=== PATIENT | male | born 1955 | race Caucasian/White ===

== ENCOUNTER 2018-01-16 07:04 | Day surgery (SDC) | payer OTHER ==
[~2018-01-16] VITALS: Ht 182.9 cm; Wt 126.1 kg
[~2018-01-16 07:04] MED LIST: ALLOPURINOL100 MG PO; ASPIRIN81 MG PO; CLOPIDOGREL75 MG PO; COZAAR100 MG PO; FISH OIL 1,0001 EACH PO; FLAX OIL1000 MG PO; GLUCOSAMINE &1 EACH PO; LIPITOR80 MG PO; METOPROLOL TAR100 MG PO; NITRO DUR TD; OSTEO BI-FLEX1 EAC4 PO; ZESTRIL40 MG PO
--- NOTE | 2018-01-16 08:54 | NUR ---
01/16/18 0854 Lola Villagomez 0836 PATIENT ARRIVES TO PACU SLEEPING, AWAKENS WITH VERBAL STIMULI. RESP EVEN AND UNLABORED, ON NC AT 3 LITERS, TURNED OFF ON ARRIVAL TO PACU, ROOM AIR SATS 94-95%.
--- NOTE | 2018-01-17 09:07 | OR ---
[facility] [address], [place] [address] Signed DATE OF OPERATION: 01/16/2018 SURGEON: Savannah Deleon MD PREOPERATIVE DIAGNOSES: 1. Diverticulosis. 2. Internal hemorrhoids. 3. Screening. POSTOPERATIVE DIAGNOSES: 1. Minimal sigmoid diverticulosis. 2. 5 mm polyp at 35 cm. 3. Minimal internal hemorrhoids. PROCEDURE PERFORMED: Colonoscopy with hot biopsy. ESTIMATED BLOOD LOSS: None. INDICATIONS: The patient is a 62-year-old gentleman, who came to us for a followup screening colonoscopy. He knows he has internal hemorrhoids with some diverticulosis. He has been on aspirin and Plavix for his cardiac stents. It has now been one year, so he is off the Plavix and he stopped the aspirin as well for the procedure. In the office, I gave him a pamphlet on endoscopy and we reviewed that together along with the risks including, but not limited to gas bloating, crampy abdominal pain, bleeding, perforation, requiring surgery, and missed diagnosis. He also understands the need for IV conscious sedation. He had expressed understanding and wished to proceed. DESCRIPTION OF PROCEDURE: Corey was taken into our endoscopy suite and placed in the left lateral decubitus position. He was given 5 mg of Versed and 100 mcg of fentanyl to cover the case. A digital rectal exam was performed and this was unremarkable. He does have a little induration to the prostate. The adult colonoscope was introduced and advanced all around into the cecum without difficulty. His prep was good. The scope was then slowly withdrawn. We saw few diverticula in the sigmoid colon. They were minimal to moderate in size, few in number, and scattered about. At 35 cm, we saw a small 5 mm polyp. It was easily removed with hot biopsy forceps. The rectum itself was unremarkable. Upon retroflexion of scope, he does have just a little bit internal hemorrhoid tissue as Electronically Signed By: SAVANNAH DELEON MD 01/17/18 0907 PATIENT NAME: COREY HUDDLESTON OPERATIVE REPORT DATE OF : 51 REPORT #: [id number] PHYSICIAN: SAVANNAH DELEON MD PCP: YENNI HATHAWAY MD REPORT IS CONFIDENTIAL AND NOT TO BE RELEASED WITHOUT AUTHORIZATION [facility] [address] [place] [id number] Signed well. After this, the gas was suctioned out and the colonoscope removed. The patient tolerated the procedure quite well. RECOMMENDATIONS: I will see the patient back in my office in 7 to 14 days to review his results. Savannah Deleon MD ALB/MODL /[id number] cc: MD Savannah Shanks MD Copies: YENNI HATHAWAY MD, ANDREW L MD ~ Electronically Signed By: SAVANNAH DELEON MD 01/17/18 0907 PATIENT NAME: COREY HUDDLESTON OPERATIVE REPORT DATE OF : 51 REPORT #: [id number] PHYSICIAN: SAVANNAH DELEON MD PCP: YENNI HATHAWAY MD REPORT IS CONFIDENTIAL AND NOT TO BE RELEASED WITHOUT AUTHORIZATION
== END 2018-01-16 09:15 | disposition home or self-care (01) ==
LOC: OPS 07:04 → DS 07:04 → OPS 08:15 → DS 08:15 → OPS 09:15
PROVIDERS: Colon & Rectal Surgery
PROC: 0DBE8ZZ Excision of Large Intestine, Via Natural or Artificial Opening Endoscopic (ICD-10-PCS; principal; 2018-01-16 08:15)
DX: Z12.11 Encounter for screening for malignant neoplasm of colon (principal); K63.5 Polyp of colon; K57.30 Diverticulosis of large intestine without perforation or abscess without bleeding; K64.8 Other hemorrhoids; Z79.82 Long term (current) use of aspirin; Z79.899 Other long term (current) drug therapy; Z79.02 Long term (current) use of antithrombotics/antiplatelets
CPT/HCPCS: 99153; G0500; J2250; J3010; J7120

== ENCOUNTER 2023-03-13 08:53 | Day surgery (SDC) | payer MEDICARE ==
[2023-02-28 12:54] VITALS: BP 153/79
[~2023-03-13] VITALS: Ht 182.9 cm; Wt 129.0 kg
--- NOTE | ~2023-03-13 | OR ---
[facility] [address] [place], [place] [address] Draft DATE OF OPERATION: 03/13/2023 SURGEON: Ronda Garcia MD PREOPERATIVE DIAGNOSIS: Severe DJD, right knee. POSTOPERATIVE DIAGNOSIS: Severe DJD, right knee. PROCEDURE PERFORMED: Right total knee arthroplasty with Keith. SOFTWARE ASSET MANAGEMENT ANALYST: Kia Ibarra PA-C. Kia was present and critical for all portions of the procedure. ANESTHESIA: Spinal. BLOOD LOSS: 163 mL. TOURNIQUET TIME: Zero. IMPLANTS: Shaunna Triathlon size 6, 9 mm polyethylene and 38 mm patella. BRIEF HISTORY: Corey is a 67-year-old gentleman with significant osteoarthritis. Nonoperative treatment failed to control his symptoms and he wished to proceed with total knee arthroplasty. Risks and benefits were discussed with him at length. He understood and wished to proceed. DESCRIPTION OF PROCEDURE: Once consent was obtained, he was taken to the operating room. After adequate anesthesia, he was placed on the operating room table on a hip bump. The leg was prepped and draped in a standard sterile fashion. The knee was approached through a standard anterior midline incision. This was carried through the skin and subcutaneous PATIENT NAME: COREY HUDDLESTON OPERATIVE REPORT DATE OF : 51 REPORT #: [id number] PHYSICIAN: RONDA GARCIA MD PCP: YENNI HATHAWYA MD REPORT IS CONFIDENTIAL AND NOT TO BE RELEASED WITHOUT AUTHORIZATION [facility] [address] [place], [place] [address] Draft tissue. A midvastus arthrotomy was performed and the infrapatellar fat pad was excised. The MCL was elevated subperiosteally around to the posteromedial corner. The patella was quite large and we went ahead and made the patellar cut initially to improve the exposure. The protection plate was then placed on the patella. Once this was completed, the osteophytes were removed off the lateral side to improve mobilization of the patella. Computer arrays were then placed in the medial femoral condyle and tibia and the leg was registered with the computer. The fine anatomic points of the knee were registered with the computer. The varus and valgus ligamentous testing was then undertaken. He was quite tight medially, so some varus changes were made to both components. This equalized the ligamentous tension. The robot was then brought in and 4 straight cuts and 2 angle cuts were made with care taken to protect the patellar tendon and MCL. The bony remnants were removed as were any remaining osteophytes. The posterior osteophytes were removed off the femur and no posterior release was performed. The trials were then positioned. The knee was taken from 0 to 135 degrees with good flexion and extension. There was good stability throughout. The patella was finished using the 38 mm drill guide. The distal femur was drilled and the proximal tibia was finished using the keel punch and drill guide. The tibia was impacted into position first followed by the polyethylene. The femur was then impacted until it was well seated. The knee was extended and loaded. The patella was clamped into position and the clamp was removed. The knee was taken through range of motion. The patella was noted to track quite nicely. The periarticular soft tissues were injected with 100 mL of ropivacaine and Toradol mixture. The On-Q pain pump was percutaneously placed into the adductor canal from the suprapatellar pouch. The knee was then irrigated with one bottle of Surgiphor followed by normal saline. The arthrotomy was then closed using a combination of #2 FiberWire and #2 Stratafix, subcutaneous tissue with 0 Stratafix and the skin with 3-0 Stratafix. The wound was sealed with LiquiBand and Steri-Strips. The wound was dressed with Acticoat-7 dressing, ABDs and Shayan wrap. He tolerated the procedure well. All sponge, needle, and instrument counts were correct. Ronda Garcia MD BA/MODL /[id number] Copies: PATIENT NAME: COREY HUDDLESTON OPERATIVE REPORT DATE OF : 51 REPORT #: [id number] PHYSICIAN: RONDA GARCIA MD PCP: YENNI HATHAWAY MD REPORT IS CONFIDENTIAL AND NOT TO BE RELEASED WITHOUT AUTHORIZATION [facility] [address] [facility] [place] [address] Draft ~ PATIENT NAME: COREY HUDDLESTON OPERATIVE REPORT DATE OF : 51 REPORT #: [id number] PHYSICIAN: RONDA GARCIA MD PCP: YENNI HATHAWAY MD REPORT IS CONFIDENTIAL AND NOT TO BE RELEASED WITHOUT AUTHORIZATION
[~2023-03-13 08:53] MED LIST changes: +MEN PO; +[UNRECOGNIZED DRUG - OTHER] PO
[2023-03-13 09:14] VITALS: BP 140/71
[2023-03-13] MEDS ORDERED: AMLODIPINE BESY10 MG PO (09:22)
[2023-03-13] MEDS ORDERED: NAPROXEN250 MG PO (09:23)
[2023-03-13] MEDS ORDERED: DICLOFENAC SODI75 MG PO (12:39)
[2023-03-13] MEDS ORDERED: XARELTO10 MG PO (12:39)
[2023-03-13] MEDS ORDERED: GABAPENTIN300 MG PO (12:40)
[2023-03-13] MEDS ORDERED: SENNA LAX8.6 MG PO (12:40)
[2023-03-13] MEDS ORDERED: OXYCODONE HCL5 MG PO (12:40)
[2023-03-13 13:30] VITALS: BP 129/59
--- NOTE | 2023-03-13 13:35 | NUR ---
PT ARRIVES TO DAY SURGERY UNIT FROM PACU VIA STRETCHER. PT IS SITTING UP IN BED SIPPING ON ICE WATER AT THIS TIME. PT REPORTS NO PAIN OR NAUSEA AT THIS TIME. REPORT RECEIVED FROM JOAN MACDONALD, NO FAMILY PRESENT AT BEDSIDE. DRESSING IS C/D/I, NO SIGNS OF BLEEDING AT THIS TIME. CRYO CUFF, YOLI HOSE, HEEL PROTECTORS, FOOT PUMPS, AND ONQ PUMP @ [address]. SPINAL HAS RESOLVED TO KNEE LEVEL AT THIS TIME, PT REPORTS NO N/T IN EXTREMITIES. CRACKERS, JELLO, APPLESAUCE PROVIDED, PT TOLERATING CRACKERS W/OUT DIFFICULTY SWALLOWING. CALL LIGHT WITHIN REACH, NO FURTHER NEEDS AT THIS TIME. CALLED AND UPDATED.
--- NOTE | 2023-03-13 14:06 | NUR ---
03/13/23 1406 Liliya Kramer 1251- PT ARRIVES TO PACU, NON REACTIVE TO STIMULUS, SEMI ARCINIEGA POSITION. OPA IN PLACE, PT MAINTAINING AIRWAY WITH JUST OPA. O2 AT 6L PER MASK. LR INFUSING TO RH IV. BREATHING EVEN AND NON LABORED. ALL MONITORS IN PLACE. PULSES INTACT TO RIGHT LEG. ON- Q PUMP AT 4 MG/HR. 1300- PT REACTIVE TO STIMULUS, OPA REMOVED, O2 REMAINS IN PLACE AT THIS TIME. CRYOCUFF PLACED TO RIGHT KNEE. 1310- PT RUBBING AT FACE AND O2 MASK, MOVED TO ROOM AIR. WILL CONTINUE TO MONITOR. 1315- PT STATES "THIS HAS BEEN PAIN FREE". NO OTHER COMPLAINTS. 1320- PT PROVIDED ICE WATER TOLERATING WELL. PT IS ABLE TO ROTATE AND MOVE RIGHT LEG SIDE TO SIDE, LEFT LEG SMALL MOVEMENTS. PT CONTINUES TO DENY PAIN, LEGS BOTH STILL FEEL NUMB. 1335- PT BACK TO DAY SURGERY. REPORT TO HERIBERTO MACDONALD AT BEDSIDE. LR INFUSING TO RH IV, ON-Q PUMP IN PLACE AT 4 MG/HR, DRESSING CDI, CRYOCUFF IN PLACE. PT IS ALERT AND ANSWERING QUESTIONS APPROPRIATELY, SLIGHTLY DROWSY. MOVING ALL 4 EXTREMITIES ALTHOUGH LOWER EXTREMITIES LIMITED. NO SIGNS OF DISTRESS. CARE OF PT TURNED OVER AT THIS TIME.
--- NOTE | 2023-03-13 14:20 | NUR ---
IN PT ROOM FOR ASSESSMENT AND VS. PT REPORTS NO PAIN OR NAUSEA AT THIS TIME. PT IS A&O X4, SITTING UP IN BED W/ IN ROOM. NO ACUTE CHANGES FROM PREVIOUS SURGICAL SITE ASSESSMENT. SPINAL HAS RESOLVED TO ANKLE LEVEL AND PT IS ABLE TO MOVE LEGS FREELY WITHOUT DIFFICULTY. LUNCH ORDERED FOR PT AT THIS TIME, CALL LIGHT WITHIN REACH, NO FURTHER NEEDS AT THIS TIME.
[2023-03-13 14:25] VITALS: BP 140/73
--- NOTE | 2023-03-13 14:50 | NUR ---
PT OFF OF UNIT VIA WC AND STANDBY ASSIST BY THIS RN TO PASSENGER SIDE OF 'S VEHICLE. PT REPORTS NO FURTHER NEEDS OR QUESTIONS AT THIS TIME. ALL BELONGINGS IN PT POSSESSION AT THIS TIME.
--- NOTE | 2023-03-13 15:30 | NUR ---
PT TO PHYSICAL THERAPY AT THIS TIME D/T SPINAL RESOLVE, ABLE TO WIGGLE TOES, AND NO PAIN AT THIS TIME.
[2023-03-13 15:59] VITALS: BP 145/73
--- NOTE | 2023-03-13 16:00 | NUR ---
PT ARRIVES BACK FROM PHYSICAL THERAPY AT THIS TIME. PT REPORTS PAIN 2/10 AND STATES THIS IS TOLERABLE, BUT HAS DRIVE HOME AND WOULD LIKE SOMETHING FOR PAIN FOR DRIVE. PRN OXY GIVEN (SEE EMAR). SMALL DOT OF SS DRAINAGE ON SURGICAL DRESSING AT THIS TIME, DRESSING REMAINS INTACT. PT REPORTS NO NAUSEA, OR DIZZINESS. VS TAKEN. PT GETTING DRESSED AT THIS TIME W/ ASSISTANCE. CALL LIGHT WITHIN REACH, NO FURTHER NEEDS AT THIS TIME.
--- NOTE | 2023-03-13 16:25 | NUR ---
VERBAL ORDER FOR DISCHARGE RECEIVED FROM GERARDO VILLEGAS AT THIS TIME.
--- NOTE | 2023-03-13 16:35 | NUR ---
IN PT ROOM FOR ASSISTANT PLANT MANAGER, DISCHARGE EDUCATION, ASSESSMENT, AND VS. PT REPORTS IMPROVEMENT IN PAIN POST PRN PAIN ASSISTANT PLANT MANAGER, DISCHARGE MEDS GIVEN AT THIS TIME PER MD ORDERS (SEE EMAR). VS TAKEN. DISCHARGE EDUCATION PROVIDED TO PT AND HIS , BOTH STATE NO FURTHER QUESTIONS AT THIS TIME AND VERBAL UNDERSTANDING OF DISCHARGE EDUCATION. NO ACUTE CHANGES FROM PREVIOUS SURGICAL ASSESSMENTS AT THIS TIME.
[2023-03-13 16:55] VITALS: BP 144/64
== END 2023-03-13 16:55 | disposition home or self-care (01) ==
LOC: DS 08:53
PROVIDERS: ATTEND Specialist
PROC: 3E0T3BZ Introduction of Anesthetic Agent into Peripheral Nerves and Plexi, Percutaneous Approach (ICD-10-PCS; 2023-03-13)
PROC: 0SRC0JZ Replacement of Right Knee Joint with Synthetic Substitute, Open Approach (ICD-10-PCS; principal; 2023-03-13 11:30)
DX: M17.11 Unilateral primary osteoarthritis, right knee (principal); E78.00 Pure hypercholesterolemia, unspecified; I10 Essential (primary) hypertension; M10.9 Gout, unspecified
CPT/HCPCS: 01400; 64447; 64450; 76942; 97161; A9270; C1713; C1776; J0690; J1100; J2001; J2250; J2405; J2704; J2795; J7121

== ENCOUNTER 2023-04-07 08:02 | Inpatient (IN) | payer MEDICARE ==
[2023-04-07] VITALS (7 sets, daily range): BP systolic 136–151; BP diastolic 62–72
[~2023-04-07] VITALS: Ht 182.9 cm; Wt 129.5 kg
[~2023-04-07 08:02] MED LIST changes: +AMLODIPINE BESY10 MG PO; +DICLOFENAC SODI75 MG PO; +GABAPENTIN300 MG PO; +NAPROXEN250 MG PO; -NITRO DUR TD; +NITROSTAT0.4 MG SL; +OXYCODONE HCL5 MG PO; +SENNA LAX8.6 MG PO; +XARELTO10 MG PO
[2023-04-07 11:34] LABS: VISCOSITY, SYNOVIAL FLUID DECREASED
--- NOTE | 2023-04-07 12:15 | NUR ---
RECIEVED REPORT FROM ESTELLE Welch RN. PT MOVED FROM PACU BED TO MED/SURG BED BY 2 RNs. PT STATES PAIN IS 2/10 AT THIS TIME AND DECLINES NEED FOR PAIN MEDICATION AT THIS TIME. PT A+O TO ALL, WEAKNESS IN BLE LIKELY D/T ANASTHESIA USE IN SURGERY. PHYSICAL THERAPY IN ROOM WORKING WITH PT. RIGHT LEG FULLY COVERED WITH SURGICAL DRESSING, NO EDEMA SEEN ON ASSESSMENT, PULSES STRONG IN ALL EXTREMETIES, CAP REFILL BRISK <3 SECONDS IN ALL EXTREMETIES. YOLI HOSE IN PLACE ON LEFT LEG, VENOUS FOOT PUMPS IN PLACE ON BOTH FEET. BOWEL TONES ACTIVE, PT HAS NOT EATEN SINCE PRIOR TO SURGERY, LAST BM YESTERDAY 04/06/23. PT DUE TO VOID POST-OP. PACU NURSE AND PT REPORT "BLISTER WITH SCAB" ON RIGHT LOWER LEG, COVERED BY SURGICAL DRESSING. RIGHT KNEE SURGICAL SITE COVERED WITH SURGICAL DRESSING. PT STATES NO FURTHER NEEDS AT THIS TIME, CALL LIGHT WITHIN REACH, BROTHER AT THE BEDSIDE.
--- NOTE | 2023-04-07 12:57 | NUR ---
04/07/23 1257 Angela Sweeney 1129 PT ARRIVED TO PACU ON RA AND PT WAKES EASILY. PT DENIES PAIN AND PT UNABLE TO MOVE FEET OR LEGS AND EDUCATION GIVEN. PT SPINAL LEVEL L1 1137 MD AT BEDSIDE TALKING TO PT AND ALL QUESTIONS ANSWERED. PLAN OF CARE DISCUSSED. 1215 PT TRANSFERED TO FLOOR AND AT BEDSIDE. REPORT GIVEN. PT CONTINUES TO DENY PAIN AND NAUSEA. PT MOVING HIS FEET SOME.
--- NOTE | 2023-04-07 13:25 | NUR ---
SECOND SET OF POST-OP VITAL SIGNS WNL, PT REPORTS PAIN IS 2/10, DENIES NEED FOR PAIN MEDICATION AT THIS TIME. MEDICATION DUE STARTED. PT STATES NO FURTHER NEEDS AT THIS TIME, CALL LIGHT WITHIN REACH, FAMILY AT THE BEDSIDE.
--- NOTE | 2023-04-07 14:19 | NUR ---
IV pump alarming distal occlusion. Error resolved. Patient denies needs at this time and call light in reach.
--- NOTE | 2023-04-07 15:20 | NUR ---
IN TO ADMINISTER MEDICATION, SEE MAR. PT TAKES PO MEDICATION WITH NO ISSUES. VITALS COMPLETE. IV INFUSION COMPLETE. PT SL AT THIS TIME. PT LAYING IN BED WATCHING TV. PT DENIES ANY OTHER NEEDS AT THIS TIME. CALL LIGHT IN REACH.
--- NOTE | 2023-04-07 15:53 | NUR ---
MED REC COMPLETE
--- NOTE | 2023-04-07 16:23 | NUR ---
THIS RN CALLED DR. CARRILLO REGARDING PTs BP MEDICATIONS. PER DR. CARRILLO ORDERS PLACED. VERIFIED WITH READBACK.
--- NOTE | 2023-04-07 18:35 | NUR ---
IN TO ROUND ON PT. PT SITTING UP IN BED. PT RESPONDS WHEN ADDRESSED. DINNER TRAY REMOVED. URINAL EMPTIED. WATER PROVIDED. PT DENIES ANY OTHER NEEDS AT THIS TIME. CALL LIGHT IN REACH.
--- NOTE | 2023-04-07 19:15 | NUR ---
BEDSIDE REPORT RECEIVED FROM DARRON MACDONALD, PT AWAKE AND ALERT, DESIRES TO GO TO BR TO ATTEMPT TO HAVE A BM, 1PA WITH FWW, PT TOLERTATED AMBULATION WITHOUT DIZZINESS OR PAIN, PT PASSING GAS BUT NO BM AT THIS TIME, BACK TO BED, FOOT PUMPS REPLACED BILATERALLY, RIGHT LEG DRESSING DRY AND INTACT, PEDEL PULSES PALPABLE, RIGHT FOOT WARM WITH GOOD MOVEMENT, FRESH ICE TO RIGHT KNEE, PT RESITNG IN BED, TALKATIVE AND CHEERFUL, WITHOUT FURTHER REQUESTS AT THIS TIME.
--- NOTE | 2023-04-07 21:45 | NUR ---
RN TO BEDSIDE, PT AWAKE AND ALERT, WATCHING TV, DENIES PAIN AT THIS TIME, ASSESSMENT AND I/O DONE, RT MEDICATIONS GIVEN PER ORDER, PT DECLINES MOM FOR TONIGHT BUT DOES TAKE THE STOOL SOFTENER PER ORDER, PT TAKING PO WELL, RIGHT LEG DRESSING REMAINS DRY AND INTACT. ICE REMAINS TO KNEE. FRESH WATER GIVEN, SL IN RIGHT HAND FLUSHES WELL, WITH GOOD BLOOD RETURN. SIDE RAILS UP X 2, HOB ELEVATED, BED LOW POSITION AND CALL LIGHT IN REACH FOR PT.
--- NOTE | 2023-04-07 23:00 | NUR ---
PT REMAINS AWAKE, CPAP IN PLACE, PT CONTINUES TO DENY PAIN, HEEL PROTECTORS PLACE ON PT, 1 PILLOW UNDER RIGHT HEEL ONLY, ICE REMAINS TO KNEE, DRESSING DRY AND INTACT. PT RECENTLY VOIDED PER URINAL. RESTING.
--- NOTE | 2023-04-08 00:10 | NUR ---
PT REMAINS UP IN RECLINER, VOIDED PER URINAL, WATCHING TV, LEGS REMAIN ELEVATED IN RECLINER, PT WOULD LIKE TO SIT UP A BIT MORE, CALL LIGHT IN REACH.
--- NOTE | 2023-04-08 00:15 | NUR ---
PT ASLEEP, CPAP REMAINS IN PLACE, O2 SAT 96%
--- NOTE | 2023-04-08 01:30 | NUR ---
PT CONTINUES TO SLEEP, SATS STABLE, WITHOUT DISTRESS.
[2023-04-08 02:15] VITALS: BP 162/63
--- NOTE | 2023-04-08 02:15 | NUR ---
PT ASLEEP, STARTLES WHEN NURSE CALLS OUT HIS NAME, VS, I/O AND FOCUS ASSESSMENT COMPLETED, RIGHT LEG DRESSING APPEARS DRY, FRESH ICE TO RIGHT KNEE, PT STATES HE HAS BEEN SLEEPING WELL AND DENIES NEED FOR PAIN MED AT THIS TIME, CMS CHECKS TO RIGHT FOOT INTACT, FRESH WATER GIVEN.
--- NOTE | 2023-04-08 04:12 | NUR ---
PT APPEARS TO SLEEP, RESP EVEN AND REG, CPAP REMAINS IN PLACE, OXY SAT 94% HR 68 PER CPOX, PT WITHOUT DISTRESS.
[2023-04-08 05:32] LABS: BASOPHILS 0.1 % (0-2); HEMATOCRIT 29.7 % (35.0-50.0); HEMOGLOBIN 10.1 g/dL (12.0-18.0); LYMPHOCYTES 6.9 % (24-44); MCH 29.9 (27-36); MCV 87.8 fl (81-99); MONOCYTES 12.9 % (0-12); NEUTROPHILS 80.1 % (39-80); PLATELET COUNT 327 K/uL (140-440); RBC 3.38 M/ul (4.3-5.7); RDW 13.9 (10.5-15.0)
[2023-04-08 05:40] VITALS: BP 167/76
--- NOTE | 2023-04-08 05:40 | NUR ---
PT AWAKE AND ALERT, VS STABLE, AFEBRILE, LINEN DAMP, PT FEELS LIKE HE WAS SWEATY EARILIER, PT AFEBRILE, PT UP TO BR, 1PA FWW, HAD LARGE SOFT BROWN STOOL, GAIT STEADY, BACK TO BED, PT REQUESTING SOMETHING LIGHT FOR RIGHT KNEE DISCOMFORT, MEDICATED WITH TORADOL 15MG PER ORDER, FRESH ICE TO RIGHT KNEE, DRESSING DRY AND INTACT, HEEL PROTECTORS IN PLACE, AND FOOT PUMPS IN PLACE.
[2023-04-08 06:18] LABS: ANION GAP 14.2 (7-21); BUN/CREATININE RATIO 16.79 (6.0-28.6); CALCIUM 8.9 mg/dL (8.5-10.1); CREATININE, SERUM 1.31 mg/dL (0.70-1.30); POTASSIUM 4.2 mmol/L (3.5-5.1)
--- NOTE | 2023-04-08 06:37 | NUR ---
CALL LIGHT ANSWERED, pt BACK TO BED. pt HAD A LIQUID GREEN/BROWN BM. FOOT SCD'S IN PLACE ALONG WITH HEEL PROTECTORS. pt WISHES TO GO BACK ON HOME CPAP FOR A LITTLE BIT, CPOX RESUMED. CALL LIGHT IN REACH. NO FURTHER NEEDS OR CONCERNS VERBALIZED.
--- NOTE | 2023-04-08 07:27 | NUR ---
REPORT RECEIVED FROM MIGUELANGEL Gibson RN. PT AMBULATING BACK TO BED FROM RESTROOM WITH ASSISTANCE FROM MIGUELANGEL Gibson RN. PT IN BED. PT RESPONDS WHEN ADDRESSED. PT DENIES PAIN AT THIS TIME. BM NOTED, LIQUID. PT DENIES ANY OTHER NEEDS AT THIS TIME. CALL LIGHT IN REACH.
--- NOTE | 2023-04-08 08:26 | NUR ---
IN TO ADMINISTER MEDICATION, SEE MAR. PT TAKES PO MEDICATION WITH NO ISSUES. PT REFUSES MIRALAX AND SENNA DUE TO PT HAVING FREQUENT BM THIS MORNING. PT A&O TO ALL. ASSESSMENT COMPLETE. LUNG SOUNDS CLEAR. BOWEL TONES ACTIVE. PT DENIES PAIN AT THIS TIME. PT DENIES NUMBNESS OR TINGLING. PEDAL PULSES PALPABLE AND EQUAL. CMS INTACT. DRESSING TO RIGHT LEG C/D/I. ICE PACK TO RIGHT KNEE IN PLACE. FOOT SCDs IN PLACE. HEEL PROTECTORS IN PLACE. IV FLUSHES WNL AND SL. PT DENIES ANY OTHER NEEDS AT THIS TIME. CALL LIGHT IN REACH.
--- NOTE | 2023-04-08 09:23 | NUR ---
DR CARRILLO CALLED AND UPDATED ON PT STATUS AND AVALIBILITY OF PICC LINE RN THIS SHIFT. ORDERS GIVEN FOR PICC LINE PLACEMENT AND IV ABX. ORDERS ENETERED, REPEAT BACK PERFORMED. PTS PRIMARY RN UPDATED.
--- NOTE | 2023-04-08 09:25 | OR ---
[facility] [address] [place], [place] [address] Signed DATE OF OPERATION: 04/07/2023 SURGEON: Ronda Garcia MD PREOPERATIVE DIAGNOSIS: Cellulitis. POSTOPERATIVE DIAGNOSES: 1. Cellulitis. 2. Infection deep right total knee. PROCEDURE PERFORMED: Irrigation and debridement of skin, subcutaneous tissue and exchange of polyethylene right total knee. BELLHOP SERVICE CAPTAIN: None. ANESTHESIA: Spinal. BLOOD LOSS: 200 mL. TOURNIQUET TIME: Zero. CULTURES: Multiple deep cultures were sent to the lab. BRIEF HISTORY: Corey is a 67-year-old gentleman with total knee about three weeks ago. He had been doing extremely well until this week when he had a marked change in his pain. He was unable to bear weight. He had a little bit of drainage and this increased along with some cellulitis inferomedially. He was seen in the office yesterday and advised that we needed to wash it out today. Risks, benefits, and alternatives were discussed. He understood and wished to proceed. DESCRIPTION OF PROCEDURE: Once consent was obtained, he was taken to the operating room. After adequate Electronically Signed By: RONDA GARCIA MD 04/08/23 0925 PATIENT NAME: COREY HUDDLESTON OPERATIVE REPORT DATE OF : 51 REPORT #: [id number] PHYSICIAN: RONDA GARCIA MD PCP: YENNI HATHAWAY MD REPORT IS CONFIDENTIAL AND NOT TO BE RELEASED WITHOUT AUTHORIZATION [facility] [address] [place], [place] [address] Signed anesthesia, he was placed on operating room table. All downside pressure points were well padded. The leg was prepped and draped in a standard sterile fashion. The prior incision was marked out and incised longitudinally the full length. Skin flaps were developed medially and laterally. We immediately encountered small pocket of purulent fluid inferomedially where the corresponding cellulitis was. The fluid was cultured and the underlying capsule was compromised. We elected then to go ahead and do the full arthrotomy and do the poly exchange. The arthrotomy was then reopened over the full extent. Once this was completed, the deep cultures were taken in multiple places. The polyethylene was then removed from the tibial plate and the knee was copiously irrigated with 3 L of normal saline under pulse lavage, followed by cleaning the prosthesis completely using hydrogen peroxide soaked Ray-Deo. Once this was accomplished, the synovectomy was performed and all necrotic devitalized tissue was removed. The knee was then irrigated with one bottle of Surgiphor, which was allowed to soak for 5 minutes. This was then followed by 3 L of normal saline again under pulse lavage. The new polyethylene was then snapped into position. The soft tissue was again debrided and the remaining suture was removed. The arthrotomy was then closed using #1 PDS, the subcutaneous tissue with 2-0 Monocryl and the skin with sheila. The arthrotomy was tight and stable to about 45 degrees of flexion with no irritation. The knee was then dressed with Allevyn, ABDs and a bulky Matthews dressing. He was then awakened, taken to recovery room in satisfactory condition. All sponge, needle, and instrument counts were correct. Ronda Garcia MD BA/MODL /[id number] Copies: ~ Electronically Signed By: RONDA GARCIA MD 04/08/23 0925 PATIENT NAME: COREY HUDDLESTON OPERATIVE REPORT DATE OF : 51 REPORT #: [id number] PHYSICIAN: RONDA GARCIA MD PCP: YENNI HATHAWAY MD REPORT IS CONFIDENTIAL AND NOT TO BE RELEASED WITHOUT AUTHORIZATION
--- NOTE | 2023-04-08 10:14 | NUR ---
IN TO ADMINISTER MEDICAITON, SEE MAR. IV FLUSHES WNL. IV ABX STARTED, SEE MAR. PT SITTING UP IN BED TALKING WITH MANDEEP PHILIP. PT RESPONDS WHEN ADDRESSED. PT DENIES ANY PRN PAIN MEDICAITON WHEN OFFERED. PT DENIES ANY OTHER NEEDS AT THIS TIME. CALL LIGHT IN REACH.
[2023-04-08 10:20] VITALS: BP 139/70
--- NOTE | 2023-04-08 11:33 | NUR ---
IN TO ANSWER CALL LIGHT. IV PUMP ALARMING, COMPLETE. PT SL AT THIS TIME. PT DENIES ANY OTHER NEEDS AT THIS TIME. CALL LIGHT IN REACH.
--- NOTE | 2023-04-08 12:29 | NUR ---
YING RN AND YADIRA RN IN WITH PT FOR PICC PLACEMENT. NO NEEDS FROM THIS RN.
--- NOTE | 2023-04-08 12:56 | NUR ---
IN TO ROUND ON PT. YING RN AND YADIRA RN IN ROOM WAITING FOR IMAGING CONFIRMATION OF PICC PLACEMENT. NO NEEDS FROM THIS RN.
--- NOTE | 2023-04-08 13:05 | NUR ---
PT REQUESTING DINNER TRAY. PLATE WARMED UP FOR PT. PT REPORTS BROUGHT CRYO CUFF. PT DENIES ANY OTHER NEEDS AT THIS TIME. CALL LIGHT IN REACH.
--- NOTE | 2023-04-08 13:30 | NUR ---
IN TO ANSWER CALL LIGHT. PT DONE TOILETING. PT AMBULATING WITH FWW FROM RESTROOM BACK TO BED. PT REPORTS PICC SITE BLEEDING AND SMALL DROPS OF BLOOD NOTED TO FLOOR. TORRES HE IN TO ASSIST WITH PICC SITE. SITE COVERED WITH COBAN FOR PRESSURE. PT BACK IN BED. BM AND VOID NOTED. PT DENIES ANY OTHER NEEDS AT THIS TIME. CALL LIGHT IN REACH. IN ROOM.
--- NOTE | 2023-04-08 13:45 | NUR ---
IN TO FILL CRYO CUFF. PT SITTING UP IN BED AND RESPONDS WHEN ADDRESSED. CRYO CUFF PLACED TO RIGHT KNEE. ASSESSMENT COMPLETE. PEDAL PULSES PALPABLE AND EQUAL. CMS INTACT IN BILATERAL FEET. DRESSING TO RIGHT LEG C/D/I. TRACE EDEMA NOTED TO RIGHT ANKLE. PILLOW UNDER ANKLE. PT DENIES ANY OTHER NEEDS AT THIS TIME. CALL LIGHT IN REACH. IN ROOM.
--- NOTE | 2023-04-08 13:48 | NUR ---
PICC INSERTION NOTE: ASKED TO EVALUATE PATIENT FOR POTENTIAL PICC LINE PLACEMENT, FOR NEED OF MULTIPLE WEEKS OF IV ANTIBIOTICS TO TREAT HIS RIGHT KNEE INFECTION. AFTER REVIEWING THE CHART AND INTERVIEWING THE PATIENT, NO ABSOLUTE CONTRAINDICATIONS WERE IDENTIFIED. PATIENT WAS ABLE TO SIGN CONSENT FORM AND GIVEN OPPORTUNTITY TO ASK QUESTIONS ABOUT PICC PLACEMENT, INCLUDING RISKS, BENEFITS AND POTENTIAL COMPLICATIONS. PATIENT'S RIGHT ARM WAS EVALUATED FIRST USING THE SITE RITE U/S MACHINE, AND THE BASILIC, BRACHIAL, AND CEPHALIC VEINS WERE ALL IDENTIFIED. THE BASILIC WAS THE LARGEST, AND IT WAS ESTIMATED THAT A 4 FR CATHETER WOULD TAKE UP ONLY 27% OF THE VEIN DIAMETER. THE CEPHALIC WAS ALSO A GOOD CANDIDATE IF NEEDED. PATIENT'S SKIN WAS THEN PREPPED FOLLOWING CDC GUIDELINES FOR STERILE PROCEDURE. PT'S SKIN WAS NUMBED USING LIDOCAINE, WHICH PATIENT TOLERATED WELL. IV ACCESS WAS THEN OBTAINED EASILY ON THE FIRST ATTEMPT, WITH RETURN OF BRISK, DARK, NON PULSATILE BLOOD. GUIDEWIRE WAS THEN ADVANCED EASILY, WITHOUT RESTRICTION. NEXT THE INTRODUCER WAS ADVANCED OVER THE GUIDEWIRE, AND THE SCALPEL WAS USED TO EASE THE INTRODUCER IN. THE PICC WAS THEN ADVANCED THROUGH THE INTRODUCER WITHOUT RESISTANCE. [employer] 3CG TECHNOLOGY WAS UTILIZED, WHICH SHOWED THE BEACON MOVING ACROSS THE CHEST AND DOWN TO THE APPROPRIATE SPOT. PEAKED P WAVES WERE NOTED, BUT NO INVERTED P WAVES WERE EVER RECOGNIZED, NOR WAS THE GREEN JEIMY PRESENT. AT THIS POINT, THE PICC WAS ADVANCED FULLY. A STERILE DRESSING WAS APPLIED AND A CHEST XRAY TAKEN. THE CHEST XRAY SHOWED THE TIP OF THE PICC TO LIE OVER THE CAVOATRIAL JUNCTION. A PRESSURE DRESSING WAS APPLIED TO THE PICC. REPORT WAS GIVEN TO TORRES ROB WHO IS CARING FOR THE PATIENT ON THE MEDICAL FLOOR. PT WAS GIVEN EDUCATION MATERIAL REGARDING HIS PICC LINE, AND ENCOURAGED TO ASK QUESTIONS ABOUT CARE AND MAINTENANCE OF HIS PICC LINE HE IS ANTICIPATED TO DISCHARGE HOME MONDAY. PATIENT'S RIGHT ARM WAS EVALUATED FIRST USING
[2023-04-08 14:32] VITALS: BP 147/60
--- NOTE | 2023-04-08 16:06 | NUR ---
IN TO ANSWER CALL LIGHT. PT REPORTING TOILETING NEEDS. SBA WITH FWW FROM BED TO RESTROOM. VOID NOTED. PT AMBULATED WITH FWW BACK TO BED WITH STEADY GAIT. URINAL EMPTIED. RIGHT ANKLE ELEVATED ON PILLOW. PEDAL SCDs IN PLACE. HEEL PROTECTORS IN PLACE. CRYO CUFF PLACED TO RIGHT KNEE. PT DENIES ANY OTHER NEEDS AT THIS TIME. CALL LIGHT IN REACH.
--- NOTE | 2023-04-08 16:56 | NUR ---
IN TO ROUND ON PT. PT SITTING UP IN BED AND RESPONDS WHEN ADDRESSED. PT REQUESTING PRN PAIN MEDICATION. PT REFUSES OXYCODONE AND PT STATES "IT IS JUST A LITTLE ACHE. I DON'T WANT THE OXY." WILL CALL DR. CARRILLO TO ASK FOR A NEW PRN PAIN MEDICATION. PT DENIES ANY OTHER NEEDS AT THIS TIME. CALL LIGHT IN REACH.
--- NOTE | 2023-04-08 17:00 | NUR ---
THIS RN CALLED DR. CARRILLO REGARDING PT REQUESTING SOMETHING OTHER THAN PRN OXYCODONE. VERBAL ORDERS RECEIVED AND PLACED. VERIFIED WITH READBACK.
--- NOTE | 2023-04-08 17:28 | NUR ---
IN TO ADMINISTER PRN PAIN MEDICATION, SEE MAR. PT REPORTING PAIN IN RIGHT KNEE 07/08. PT TAKES PO MEDICATION WITH NO ISSUES. WATER PROVIDED. TRAY REMOVED. PT DENIES ANY OTHER NEEDS AT THIS TIME. CALL LIGHT IN REACH. BE SITTING UP IN BED WATCHING TV.
--- NOTE | 2023-04-08 17:36 | NUR ---
PT AMBULATED WITH PHYSICAL THERAPY TODAY. PT HAS BEEN UP AND AMBULATING TO RESTROOM WITH FWW SBA MULTIPLE TIMES THIS SHIFT. VSS. DRESSING TO RIGHT LEG C/D/I. PT HAS USED CRYO CUFF THIS SHIFT. PEDAL PULSES PALPABLE AND EQUAL BILATERALLY. PT HAS HAD MINIMAL PAIN THIS SHIFT. PRN TYLENOL WAS ADMINISTERED ONCE THIS SHIFT. PICC LINE WAS PLACED THIS SHIFT.
[2023-04-08 18:14] VITALS: BP 154/69
--- NOTE | 2023-04-08 18:33 | NUR ---
IN TO ROUND ON PT. PT SITTING UP IN BED AND RESPONDS WHEN ADDRESSED. MANDEEP PHILIP IN ROOM. IV IN RIGHT HAND REMOVED, SEE VASCULAR ACCESS. PT DENIES ANY NEEDS AT THIS TIME. CALL LIGHT IN REACH.
--- NOTE | 2023-04-08 19:15 | NUR ---
SHIFT REPORT RECEIVED FROM DARRON MACDONALD, PT AWAKE, STATES HE WAS STARTING TO FALL ASLEEP, PT DENIES PAIN AT THIS TIME.
--- NOTE | 2023-04-08 21:00 | NUR ---
PT RESTING QUIETLY WITH CPAP IN PLACE, AWAKENS EASILY, VS AND I/O DONE, RT MEDICATIONS GIVEN, PT DENIES NEED FOR PAIN MED STATING ITS TOO EARLY FOR TYLENOL AND DECLINES OTHER MEDS AT THIS TIME, RIGHT UPPER ARM CIRCUMFERENCE MEASURED 10CM ABOVE PICC INSERTION SITE, NOW MEASURES 41CM (38CM DOCUMENTED AT INSERTION), SURROUNDING INSERTION SITE SOFT, NON TENDER, SECUREMENT DRESSING INTACT, NO LEAKAGE NOTED AROUND SITE, GOOD BLOOD RETURN NOTED AND FLUSHES WELL WITH 10ML NS, ORDERED VANCOMYCIN STARTED AND INFUSING WELL PER PUMP. FRESH ICE TO CRYO CUFF AND CONTINUES TO BE PLACED OVER RIGHT KNEE, DRESSING DRY AND INTACT, FOOT PUMPS AND HEEL PROTECTORS IN PLACE. SIDE RAILS UP X 2, BED LOW POSITION, CALL LIGHT IN REACH.
[2023-04-08 21:03] VITALS: BP 147/69
--- NOTE | 2023-04-08 23:15 | NUR ---
PT AWAKE, REQUEST TO BE TILTED TOWARD HIS LEFT SIDE, RN ASSISTED PT WITH MOVING RIGHT LEG TO REPOSITION TO LEFT, VANCOMYCIN COMPLETED, PICC LINE RIGHT UPPER ARM FLUSHED WITH 10ML NS AFTER GOOD BLOOD RETURN NOTED, THEN HEPARIN FLUSHED PER ORDER, PT VOIDING WELL PER URINAL 550 ML YELLOW URINE, PT WITHOUT OTHER REQUESTS, ATTEMPTING TO REST, CRYO CUFF CONTINUES TO RIGHT KNEE.
--- NOTE | 2023-04-08 23:45 | NUR ---
RN CALLED TO ROOM, PT DESIRES TO SIT UP IN RECLINER FOR A WHILE, PT 1PA WITH FWW, AMBULATES WELL TO RECLINER, CALL LIGHT IN REACH, PT STATES HE MAY TAKE A OXYCODONE WHEN HE IS READY TO GO BACK TO BED, OTHERWISE WITHOUT OTHER REQUESTS AT THIS TIME.
--- NOTE | 2023-04-09 01:25 | NUR ---
PT DESIRES TO GO BACK TO BED, TRANSFERED WITH FWW WITH ASSIST OF COURT OPERATIONS CLERK, PT MEDICATED WITH OXYCODONE 5MG FOR PAIN IN RIGHT KNEE 08/08, FOOT PUMPS AND HEEL PROTECTORS IN PLACE, RIGHT KNEE DRESSING INTACT, PEDEL PULSES PALPABLE, I/O DONE, FRESH WATER GIVEN, FRESH ICE TO CRYO CUFF, THEN PLACED ON RIGHT KNEE, PT WITHOUT OTHER REQUESTS, CPAP ON, PT ATTEMPTING TO REST.
--- NOTE | 2023-04-09 01:33 | NUR ---
Patient called to move from recliner back to bed. He used his walker and he did well with the transfer. The nurse brought him his pain medication. I filled his cryo machine with ice and also brought him fresh ice water. Brought side table back to bedside and call light is within reach. Nothing else is needed at this time.
--- NOTE | 2023-04-09 03:20 | NUR ---
PT AWAKE BRIEFLY, WITHOUT COMPLAINTS, RESTING WITH CPAP ON.
--- NOTE | 2023-04-09 04:35 | NUR ---
PT AWAKE AND ALERT, ASSISTED UP TO BR, ATTEMPTING TO HAVE BM BUT REPORTS ONLY PASSING GAS, BACK TO BED, FOOT PUMP ON WITH HEEL PROTECTORS ON , CRYO CUFF ON, PT DENIES NEED FOR PAIN MED AT THIS TIME.
[2023-04-09 05:04] VITALS: BP 139/57
--- NOTE | 2023-04-09 05:04 | NUR ---
VS DONE, STABLE, AFEBRILE, RIGHT LEG DRESSING INTACT AND DRY, NIRAV CHARGE NURSE INTO CHECK PICC LINE, MEASURED 10CM ABOVE INSERTION SITE REPORTED TO BE 38CM PER NIRAV RN, AM LABS DRAWN PER RN AFTER WASTING 6ML OF BLOOD, PICC FLUSHED WITH 10 ML NS AND THEN HEPARIN FLUSHED. DRESSING INTACT, CRYO CUFF ON. PT DENIES NEED FOR PAIN MED.
[2023-04-09 05:48] LABS: HEMATOCRIT 30.3 % (35.0-50.0); HEMOGLOBIN 10.2 g/dL (12.0-18.0); MCH 29.6 (27-36); MCHC 33.7 g/dl (30-36); MCV 87.8 fl (81-99); PLATELET COUNT 392 K/uL (140-440); RBC 3.45 M/ul (4.3-5.7); RDW 14.2 (10.5-15.0)
[2023-04-09 05:59] LABS: ANION GAP 13.9 (7-21); BUN/CREATININE RATIO 17.44 (6.0-28.6); CALCIUM 8.6 mg/dL (8.5-10.1); CREATININE, SERUM 1.49 mg/dL (0.70-1.30); POTASSIUM 3.9 mmol/L (3.5-5.1)
[2023-04-09 06:41] LABS: BANDS, MANUAL DIFF 1; BASOPHILS, MANUAL DIFF 2; EOSINOPHILS, MANUAL DIFF 2; LYMPHOCYTES, MANUAL DIFF 18; MONOCYTES, MANUAL DIFF 16; NEUTROPHILS, MANUAL DIFF 61
--- NOTE | 2023-04-09 07:09 | NUR ---
In with pt. Pt is resting supine in bed with HOB elevated to position of comfort, cpap on. He is awake, A&O x4 and removed his cpap in anticipation of VS assessment. Advised pt that I will let him rest a while longer before obtaining VS and he dons his CPAP mask again (nasal pillow). Denies needs at this time. Call light in reach. Pt report received from TORRES Kenny.
--- NOTE | 2023-04-09 07:59 | NUR ---
patient ambulated to restroom with 1pa fww. call light within reach.
[2023-04-09 08:12] VITALS: BP 133/67
--- NOTE | 2023-04-09 08:23 | NUR ---
Pt is up in chair. Has had a BM already this A.M. and states that it was a normal BM for him and declined Senna and Miralax. Pt has a pleasant affect, is wearing Chaz Hose, legs elevated in chair, dressing to right LE appears to be CDI. Arm circumference, PICC line (right arm) is 37cm this A.M. Pt denies any pain or tenderness, no leaking at the insertion site. No redness or abnormal swelling noted, dressing is intact. VSS. A.M. medications administered, breakfast tray in room. Pt denies further needs at this time. Reports his pain, currently, is 1 out of 10 (throbbing after having walked to the bathroom and back). Call light in reach.
--- NOTE | 2023-04-09 09:00 | NUR ---
PT IS CURRENTLY WORKING WITH PHYSICAL THERAPY ON STAIRS, DR. ACRRILLO IN OBSERVING.
--- NOTE | 2023-04-09 09:45 | NUR ---
In for medication administration. Pt is up in chair, LE elevated. PICC line flushed with 10ml NS per protocol, good blood return, pt has no c/o pain, tenderness, no redness or swelling noted. IV abx started per emar and PO abx administered at this time. After fluids started via PICC line, pt reports a "pressure" just above the insertion site. Measured 10cm above insertion site (I measured too low during A.M. assessment) and obtained a measurement of 43cm in circumference of right UE. PC to distribution operation supervisor Tiara Real RN and advised her of the measurement and report from patient. Tiara advised she would contact TORRES Wesley to come in and assess.
--- NOTE | 2023-04-09 10:38 | NUR ---
Spoke with TORRES Wesley, who inserted the PICC line on 04/08, and advised her of the concern. Maryjane advised that the pt may simply be experiencing irritation from insertion the day before and there may be some inflammation from that as well and to monitor the site. Advised that the line had good return and flushed well with no leaking, redness, or pain. Updated the pt on what the PICC Nurse advised. Pt verbalized understanding. IV Abx complete. Line flushed, good return, new cap placed after flushing and cleaning.
--- NOTE | 2023-04-09 11:56 | NUR ---
PT CALL LIGHT ON. PT REQUESTS ASSISTANCE REACHING LUNCH TRAY. URINAL EMPTIED OF 600ML CLEAR YELLOW URINE. TRAY TABLE REARRANGED AND LUNCH PROVIDED. ICE WATER REFILLED. PT DENIES ADDITIONAL REQUESTS OR COMPLAINTS. CALL LIGHT WITHIN REACH.
[2023-04-09 13:36] VITALS: BP 135/68
--- NOTE | 2023-04-09 14:30 | NUR ---
Pt is back in bed. Assisted pt with moving needed items closer to his bed on the bedside table, moved the cryo cuff equipment and placed it over his right knee (over the dressing), and turned on the foot pumps. Pt provided with more water and was given his 1500 medications and 5mg oxy per emar for 3 out of 10 pain. Pt states he would like to take a nap, and then afterwards he would like to go for a walk. Call light in reach, pt denies further needs at this time.
[2023-04-09 17:42] VITALS: BP 152/66
--- NOTE | 2023-04-09 18:39 | NUR ---
In with pt to assist him from the chair, back to bed. Pt is slow to transfer but is able to follow directions and use the FWW with SBA only. Pt reports increase in pressure/pain in right knee when standing after having his legs elevated but understands that this is normal, and notices that it seems to settle once he's resting and off his leg again. Pillow placed beneath pt's right ankle, cryo cuff to right knee, foot pumps and heel protectors on, kpad to RUE (PIC), personal belongings, bedside table, and call light in reach, water refreshed. Pt denies further needs at this time.
[2023-04-09 20:31] VITALS: BP 159/72
--- NOTE | 2023-04-09 20:53 | NUR ---
Pt in bed, hob elevated, on room air. Home CPAP at bedside. alert and oriented. Coop with vitals and assessment. Clear lungs, abd slightly distended, soft, marta, had a bm this morning. Declines stool softners at this time. Measurements to R arm PICC line 39cm. had heat pad to area, off at his requests. R leg dressing in place, edema to ankles, good cms, cryocuff to area, Medicated per 3/10 R knee area pain. pleasant and cooperative. uses call light.
--- NOTE | 2023-04-09 21:15 | NUR ---
PT IS CONTINUE ON HIS HOME CPAP, NO WATER, ON RA.
--- NOTE | 2023-04-10 00:30 | NUR ---
Resting, eyes closed, wearing home CPAP, no distress. R leg dressing intact, blaise hose L leg, foot pumps bilat. heel protectors in place. urinal emptied
--- NOTE | 2023-04-10 02:09 | NUR ---
pt used call light, up to br, voided, back to bed, 1pa/fww. Back to bed, coop with second assessment, R leg dressing with old shadowing lateral outer leg below popliteal area. no changes from earlier. c/o 08/08 R leg pain, medicated with Oxycodone 10mg po. foot pumps, tedhose, heel protectors, cryocuff in place, home CPAP in use, CPOX on at bedside
--- NOTE | 2023-04-10 04:24 | NUR ---
Using CPAP, awake, no further c/o pain. R leg dressing with old shadowing present, elevated wi pillow at ankles, foot scds, tedhose and heel protectors in place.
[2023-04-10 05:08] VITALS: BP 132/59
[2023-04-10 05:35] LABS: BASOPHILS 0.6 % (0-2); EOSINOPHILS 1.7 % (0-6); HEMOGLOBIN 9.8 g/dL (12.0-18.0); LYMPHOCYTES 13.6 % (24-44); MCH 29.6 (27-36); MCHC 33.7 g/dl (30-36); MCV 87.6 fl (81-99); MONOCYTES 17.2 % (0-12); NEUTROPHILS 66.9 % (39-80); PLATELET COUNT 382 K/uL (140-440); RBC 3.31 M/ul (4.3-5.7); RDW 14.2 (10.5-15.0)
[2023-04-10 05:57] LABS: BUN/CREATININE RATIO 15.49 (6.0-28.6); CALCIUM 8.9 mg/dL (8.5-10.1); CREATININE, SERUM 1.42 mg/dL (0.70-1.30)
--- NOTE | 2023-04-10 06:48 | NUR ---
Pt used CPAP most of this shift. R leg dressing with old shadowing in place. was medicated x2 earlier on shift per r leg pain, effective
--- NOTE | 2023-04-10 07:00 | NUR ---
Pt report received from TORRES Johansen. Pt is resting supine in bed, awake, watching television. Urinal emptied of 400ml clear yellow urine. Pt denies further needs at this time. Call light in reach.
[2023-04-10 10:00] VITALS: BP 155/85
--- NOTE | 2023-04-10 10:15 | NUR ---
MS NASH. 30 MINUTES. PROVIDED SUPPORTIVE PRESENCE. FACILITATED STORY-TELLING. PROVIDED PRAYER.
--- NOTE | 2023-04-10 11:00 | NUR ---
Spoke with pt and his . Pt had a TKR in March, issues with drainage and increased pain. Pt wanting IV antibiotics in the home. Discussed this requires and and infusion pharmacy. I speak with Dr. Garcia and have him write the orders and fax them to [facility] in [place]. Let them know this can take a day or two for supplies to arrive. Pt does not want to go to the hospital here or in [place] for daily antibiotics. Pt states he did very well at home following his total knee. He does not see there will be any problems when he go home this time. He has DME and they deny any financial issues. They are retired teachers. Plan for dc when antibiotic can be delivered from [place].
--- NOTE | 2023-04-10 12:15 | NUR ---
1 person SBA with FWW from bed to toilet to see if he needs to have a BM. Pt used call light in bathroom appropriately to notify staff that he was unable to have a BM but would like to perform a bed bath while he is in there. Pt was provided with a clean gown, warm bed bath wipes and a warm shower cap shampoo. Encouraged pt to use call light when he is finished and ready to transfer back out of the bathroom. Pt verbalized understanding and reports that his pain is under control and that he feels better today than yesterday. He states that he has more of a "fear of pain" than pain itself.
--- NOTE | 2023-04-10 13:06 | NUR ---
TORRES Rizvi Assisted pt from bathroom to chair and elevated LE (sba with fww). Pt reports his pain is at a 3.5 and stated he would like to take some tylenol. Pt finished all of his lunch and has been drinking more water; however, his urine still has a strong odor, but is clear and priscilla colored. His urine output for 1000 hours was about 1450.
[2023-04-10 13:38] VITALS: BP 141/73
--- NOTE | 2023-04-10 15:10 | NUR ---
UR NOTE MCG KNEE ARTHROPLASTY, TOTAL (ISC) INPATIENT 04/07/23 MET CLINICAL INDICATIONS FOR PROCEDURE GL DAY 1
--- NOTE | 2023-04-10 16:00 | NUR ---
Received a return message from my call to [facility] checking if they received my fax. Per Jhonatan they have not got it entered into the system. He asks I fax again to [phone] as this fax works better. He states if they receive the orders tonight they will work on it in the am and ship out tomorrow afternoon. Shipment should arrive on Mon. Chart faxed to the new number. Chart was also faxed to [facility] per pts request and I spoke with Salo.They will have an opening on Mon.
[2023-04-10 18:07] VITALS: BP 148/75
--- NOTE | 2023-04-10 18:10 | NUR ---
PT HAS BEEN UP IN THE CHAIR FOR SINCE AFTER LUNCH. HE REPORTS HE HAS BEEN FEELING MUCH BETTER TODAY AND THAT HIS PAIN IS MORE UNDER CONTROL. HE STATES THAT PHYSICAL THERAPY WENT WELL AND HE WAS ABLE TO TOLERATE THE STAIRS. PT HAS BEEN INCREASING HIS WATER INTAKE AND HAS ALSO BEEN VOIDING ALOT; HOWEVER, THE URINE IS DARKER YELLOW AND PUNGENT STILL. HE COMMENTS, OFTEN, HOW WE SEEM VERY BUSY AND HE IS TRYING NOT TO "BOTHER US". PT WAS EDUCATED, A FEW TIMES, ON THE IMPORTANCE OF USING HIS CALL LIGHT AND ASKING FOR THINGS HE NEEDS WELL ASKING QUESTIONS, AND REASSURED THAT HE IS NOT BOTHERING US. PT STATED HE HAS FELT LIKE HE MIGHT NEED TO HAVE A BM BUT HAS NOT HAD ONE TODAY AND WAS ENCOURAGED NOT TO DECLINE HIS MILK OF MAGNESIA AND SENNA THIS EVENING. PT HAS BEEN MOVING MUCH EASIER WHEN AMBULATING USING FWW AND SBA TO THE TOILET AND BACK. HE HAS HAD VISITORS THROUGHOUT THIS SHIFT. PT HAS RECEIVED OXY, 5MG, TWICE THIS SHIFT AND TYLENOL X1. HE HAS HAD THE CRYO CUFF ON BUT DECLINED THE KPAD. PICC LINE HAS HAD GOOD RETURN AND FLUSHES WELL, ARM CIRCUMFERENCE WAS 38CM. NO NEW SHADOWING NOTED TO THE BACK OF THE RIGHT KNEE ON THE DRESSING.
--- NOTE | 2023-04-10 21:26 | NUR ---
IN CHAIR, LEGS DEPENDENT. ON ROOM AIR, LUNGS CLEAR, SADE, NO BM FOR SEVERAL DAYS, REQUESTING SCHEDULED MOM AND SENNA THAT HE HAD DECLINED PRIOR. R PICC LINE AT 38CM. PATENT. R LEG DRESSING PADDING COVERED WITH COBAN. TENDER, MEDICATED WITH OXYCODONE 10MG PO. CRYOCUFF IN PLACE. GOOD CMS. PEDAL PULSES PALPABLE. UP TO BRP. INDEPENDENT. USED FWW, VOIDED, BACK TO BED. TOLERATED WELL. HOME CPAP AT BEDSIDE. TOLERATING LIQUIDS WELL,
[2023-04-10 21:50] VITALS: BP 138/78
--- NOTE | 2023-04-11 00:17 | NUR ---
Awake, using CPAP, denies c/o pain. hob elevated. dressing R leg no changes. pillow to loer leg, scds, heel protectors and blaise hose in place. voiding small amount yellow urine suing urinal.
--- NOTE | 2023-04-11 02:43 | NUR ---
Pt awake, using home CPAP, c/o pain R leg, medicated with 10mg po Oxycodone. dressing R leg with old shadowing. scds, heel protectors, blaise hose in place, cyocuff in place too and fresh ice added. urinal emptied and fresh water given. Repositions self in bed
[2023-04-11 05:24] VITALS: BP 128/65
[2023-04-11 05:38] LABS: HEMATOCRIT 29.8 % (35.0-50.0); HEMOGLOBIN 9.9 g/dL (12.0-18.0); MCH 29.1 (27-36); MCHC 33.2 g/dl (30-36); MCV 87.6 fl (81-99); PLATELET COUNT 390 K/uL (140-440); RDW 14.3 (10.5-15.0)
[2023-04-11 05:39] LABS: ANION GAP 14.3 (7-21); BUN/CREATININE RATIO 16.19 (6.0-28.6); CALCIUM 8.9 mg/dL (8.5-10.1); CREATININE, SERUM 1.42 mg/dL (0.70-1.30); POTASSIUM 4.3 mmol/L (3.5-5.1)
[2023-04-11 05:46] LABS: BANDS, MANUAL DIFF 6; EOSINOPHILS, MANUAL DIFF 2; LYMPHOCYTES, MANUAL DIFF 16; MONOCYTES, MANUAL DIFF 9; NEUTROPHILS, MANUAL DIFF 67
--- NOTE | 2023-04-11 06:03 | NUR ---
Pt on room air, A&O, pleasant, cooperative with procdures. R arm PICC line patent. blood sample sent to lab. SADE, no bm since 04/09, got MOM and Senna, no results yet, uses urinal, voiding QS. Tolerating liquids well, no n/v. Has been medicated 2X's with Oxycodone with good pain relief. Dressing R leg with old shadowing, cryocuff, foot pumps, heel protectors, and blaise hose in place. No c/o adverse reaction to abx. May be dc'd today with HH f/u for abx. Walked to br at begining of shift, transferring from chair to BRP to bed w/o assist. Uses home CPAP. no c/o chest pain or sob.
--- NOTE | 2023-04-11 07:32 | NUR ---
REPORT RECIEVED FROM TORRES GASTELUM. PT AWAKE AND DENIES CONCERNS ATT.
--- NOTE | 2023-04-11 07:50 | NUR ---
Spoke with LENI Adam, from [facility]. She is here, UPdated I have sent orders for antibiotics to be infused in the home and request for HH to start when supplies arrive [facility]. I attempted to call [facility] this am, but they do not open until 0830. I will call after the 8:30 meeting to confirm supplies and meds will ship today.
--- NOTE | 2023-04-11 08:15 | NUR ---
Updated Dr. Garcia and Kia, [facility] care called and will not cover the antibiotic in the home. There will be $150 weekly copay. I updated the pt and he called his . They would now like to go to [facility] for OP antibiotic. Pt would still like to have [facility] for PT. I have a call into them to discuss. Pt is homebound as he is unable to drive at this time and must be taken from the home by family or friend to leave. Chart with orders faxed to [facility] for OP antibiotics. I asked if would like to dc this pt today and he stated tomorrow and to order PT.
--- NOTE | 2023-04-11 09:00 | NUR ---
ADMINISTERED MORNING MEDS INCLUDING ONE OXY. PT TALKATIVE AND DENIES CONCERNS ATT. LOOKING FORWARD TO HEADER OPERATOR. STATES HE IS IN NO HURRY TO GO HOME HE IS GETTING GREAT CARE HERE.
--- NOTE | 2023-04-11 09:49 | NUR ---
Spoke with Monica Burton from [facility] at [facility]. She did receive the chart and will process. UPdated pt will dc to home tomorrow.
--- NOTE | 2023-04-11 10:30 | NUR ---
PT HAS A RED "HEAT RASH" ON HIS UPPER BACK FROM SITTING IN RECLINER WITHOUT A BARRIER BETWEEN SKIN AND PLASTIC. STATES HE SWEATS A LOT. CALLED [facility] FOR CREME.
--- NOTE | 2023-04-11 10:50 | NUR ---
Spoke with [facility]. Pt cannot see OP for IV therapy and have HH at the same time. He will need to go to for PT. I updated Tari at pt cannot drive and does not have a ride as his works. She gave me the phone number for their transport van. Pt can be scheduled for IV therapy with PT to follow. Pt updated.
--- NOTE | 2023-04-11 11:10 | NUR ---
APPLIED HYRDOCORTISONE TO BACK AFTER HE RETURNED FROM BOILER CONTROL ROOM OPERATOR. PT DOING HOME EXERCISES IN HIS CHAIR.
[2023-04-11 11:29] VITALS: BP 131/73
--- NOTE | 2023-04-11 12:07 | NUR ---
Faxed chart to OP therapy. Called and confirmed fax number. Updated pt will dc tomorrow. They will call him with an appt time after they review the chart.
--- NOTE | 2023-04-11 13:00 | NUR ---
PT SITTING UP IN CHAIR EATING LUNCH. DENIES CONCERNS.
--- NOTE | 2023-04-11 13:50 | NUR ---
PT SITTING UP IN CHAIR WATCHING TV. ADMINISTERED MEDICATIONS
--- NOTE | 2023-04-11 14:12 | NUR ---
Received a call from Monica at [facility]. She is requesting time of antibiotic. I spoke with pt and he has been receiving between 9 and 10. He is good with time. Pt cannot use the transport van for the first visit and I updated him to this. Per Monica, they will schedule the patient for for the first dose and call him to set up the time. They will not notify us.
[2023-04-11 14:14] VITALS: BP 139/64
--- NOTE | 2023-04-11 15:17 | NUR ---
PT CALLED AFTER HAVING A BOWEL MOVEMENT. PT AMB TO RESTROOM AND BACK ON OWN. FAMILY IN ROOM. DENIES CONCERNS ATT.
--- NOTE | 2023-04-11 16:19 | NUR ---
YESTERDAY AROUND 1500 PATIENT TOOK HIS OWN BED BATH.
--- NOTE | 2023-04-11 16:22 | NUR ---
PATIENT IS SITTING UP IN HIS CHAIR.
--- NOTE | 2023-04-11 18:38 | NUR ---
PT BACK TO BED AFTER UP IN CHAIR MOST OF DAY. REFILLED CRYO, SCDS IN PLACE. DENIES CONCERNS.
[2023-04-11 18:41] VITALS: BP 131/56
--- NOTE | 2023-04-11 19:26 | NUR ---
REPORT RECEIVED FROM DAY SHIFT RN. PT LYING IN BED ALERT AND ORIENTED. DENIES NEEDS. WHITE BOARD UPDATED. CALL LIGHT IN REACH.
[2023-04-11 20:54] VITALS: BP 148/68
--- NOTE | 2023-04-11 21:34 | NUR ---
EVENING ASSESSMENT COMPLETE. SCHEDULED MEDS ADMIN PER EMAR. PRN FOR 3/10 RIGHT KNEE PAIN ADMIN. PT DENIES NAUSEA. DRESSING RLE INTACT WITH SMALL AMOUNT OLD SHADOWING THAT REMAINS WITHIN OUTLINE. CRYO/SCD'S/YOLI TO LLE IN PLACE. PICC LINE FLUSHED PER PROTOCOL. BRISK BLOOD RETURN NOTED. HEP LOCKED. SITE/DRESSING WNL. PT WITH HOME CPAP IN PLACE. PT DENIES QUESTIONS OR CONCERNS. CALL LIGHT IN REACH.
--- NOTE | 2023-04-11 22:59 | NUR ---
CALL LIGHT ANSWERED. PT UP TO BR WITH MINIMAL SBA TO VOID AND HAVE BM. GAIT STEADY. BACK TO BED, ROSHAN WELL. SCD'S/CRYO IN PLACE. NO FURTHER NEEDS.
--- NOTE | 2023-04-12 01:53 | NUR ---
PT RESTING IN BED WITH HOME CPAP IN PLACE. AWAKENS BRIEFLY. DENIES NEEDS. CALL LIGHT IN REACH.
--- NOTE | 2023-04-12 04:08 | NUR ---
PT RESTING IN BED WITH EYES CLOSED. RESPIRATIONS EVEN. CALL LIGHT IN REACH.
--- NOTE | 2023-04-12 04:08 | NUR ---
REPORT RECEIVED FROM DAY SHIFT RN. PT LYING IN BED RESTING WITH EYES CLOSED. RESPIRATIONS EVEN. CALL LIGHT IN REACH.
--- NOTE | 2023-04-12 06:09 | NUR ---
VS AND I&O OBTAINED, WNL. PRN FOR RIGHT KNEE PAIN ADMIN PER EMAR. MORNING LABS DRAWN FROM RIGHT UPPER ARM PICC PER PROTOCOL. ASSISTED PT TO REPOSITION IN BED. FOOT SCD'S REMOVED PER PT REQUEST FOR A "BREAK" FRESH ICE TO CRYO. ASSESSMENT UNCHANGED. NO FURTHER NEEDS. CALL LIGHT IN REACH.
[2023-04-12 06:10] LABS: HEMATOCRIT 29.9 % (35.0-50.0); MCHC 33.3 g/dl (30-36); MCV 87.1 fl (81-99); PLATELET COUNT 434 K/uL (140-440); RBC 3.44 M/ul (4.3-5.7); RDW 14.2 (10.5-15.0)
[2023-04-12 06:11] VITALS: BP 130/65
[2023-04-12 06:21] LABS: ANION GAP 14.4 (7-21); BUN/CREATININE RATIO 17.42 (6.0-28.6); CALCIUM 9.3 mg/dL (8.5-10.1); CREATININE, SERUM 1.32 mg/dL (0.70-1.30); POTASSIUM 4.4 mmol/L (3.5-5.1)
[2023-04-12 06:57] LABS: BANDS, MANUAL DIFF 4; BASOPHILS, MANUAL DIFF 1; EOSINOPHILS, MANUAL DIFF 1; LYMPHOCYTES, MANUAL DIFF 15; MONOCYTES, MANUAL DIFF 12; NEUTROPHILS, MANUAL DIFF 67
--- NOTE | 2023-04-12 07:03 | NUR ---
REPORT RECEIVED FROM TORRES PADILLA. PT LAYING IN BED AND ADDRESSED THIS RN WHEN ENTERING ROOM. PT DENIES ANY NEEDS AT THIS TIME. CALL LIGHT IN REACH.
--- NOTE | 2023-04-12 08:44 | NUR ---
IN TO ADMINISTER MEDICATION. PROVIDER IN ROOM. PROVIDER NOTIFIED THIS RN THAT WE ARE CHANGING PTs ABX. WILL RETURN WITH MEDICATIONS WHEN ABX ARE FINALIZED. PT SITTING UP IN BED. PT DENIES ANY OTHER NEEDS AT THIS TIME. CALL LIGHT IN REACH.
--- NOTE | 2023-04-12 09:15 | NUR ---
Spoke with LENI Adam, from the ortho clinic. PT will not be discharging today. He will be approximately 2 more days as his WBC have increased and antibiotics will be changed.
[2023-04-12 09:51] VITALS: BP 120/61
--- NOTE | 2023-04-12 09:57 | NUR ---
IN TO ADMINSITER MEDICATIONS, SEE JUN. PT TAKES PO MEDICATIONS WITH NO ISSUES. PT REPORTING PAIN 05/10 AND REQUESTING PRN PAIN MEDICATION, ADMINISTERED, SEE JUN. PICC NOTED TO HAVE BRISK BLOOD RETURN AND FLUSHES WNL. IV ABX STARTED, SEE JUN. VITALS AND I&Os COMPLETE. ASSESSMENT COMPLETE. LUNG SOUNDS CLEAR. BOWEL TONES ACTIVE. DRESSING TO RIGHT KNEE C/D/I. PEDAL PULSES PALPABLE AND EQUAL. BLISTER AND SCABS NOTED TO PTs RLE. WATER AND JUICE PROVIDED.
--- NOTE | 2023-04-12 11:15 | NUR ---
IN TO ROUND ON PT. PT SITTING UP IN BED WATCHING TV. URINAL EMPTIED. WATER PROVIDED. PT DENIES ANY NEEDS AT THIS TIME. PT DENIES PAIN AT THIS TIME. IV INFUSING. CALL LIGHT IN REACH.
--- NOTE | 2023-04-12 11:18 | NUR ---
Called and updated [facility] referral nurse, Monica. Pt. will dc in approximately 2 days. Monica confirmed they can see the pt on Sat. if he discharges and needs to start antibiotics on Sat.
--- NOTE | 2023-04-12 11:38 | NUR ---
MS CHARITY. PT IN [facility] SPIRITS. CONFIRMED INFORMATION FROM CARE TEAM. PROVIDED HOSPITALITY. PROVIDED PRAYER. PT EXPRESSED UNDERSTANDING OF SITUATION AND HOPE FOR POSITIVE OUTCOME.
--- NOTE | 2023-04-12 11:55 | NUR ---
PT CALL LIGHT ON. PT REPORTS IV INFUSION IS COMPLETE. PUMP ALARMING, INFUSION AND FLUSH COMPELTE. PICC LINE FLUSHED AND HEAPRIN LOCKED PER PROTOCOL. BRISK BLOOD RETURN PRESENT. ALCOHOL CAP APPLIED. URINAL EMPTIED OF 200ML. PT DENIES ADDITIONAL REQUESTS OR COMPLAINTS. CALL LIGHT WITHIN REACH. BED RAILS UP. PTS PRIMARY RN UPDATED.
--- NOTE | 2023-04-12 12:30 | NUR ---
WHILE PATIENT WAS OUT OF THE ROOM WITH PYSICAL THERAPY I CHANGED THE BED LINENS. WHEN PATIENT CAME BACK AND PYSICAL THERAPY PUT HIM IN HIS CHAIR. I REFILLED HIS CRYO. AND GOT HIM A FRESH GLASS OF ICE WATER.
--- NOTE | 2023-04-12 13:16 | NUR ---
IN TO ROUND ON PT. PT SITTING UP IN RECLINER. PT REPORTS BEING DONE WITH LUNCH. TRAY REMOVED. URINAL EMPTIED. WATER PROVIDED. PT DENIES ANY OTHER NEEDS AT THIS TIME. CALL LIGHT IN REACH.
[2023-04-12 13:35] VITALS: BP 143/52
--- NOTE | 2023-04-12 14:08 | NUR ---
UR NOTE MCG KNEE ARTHROPLASTY, TOTAL (ISC) INPATIENT 04/08/23 VARIANCE GL DAY 2 04/09/23 VARIANCE GL DAY 2 04/10/23 VARIANCE GL DAY 2 04/11/23 VARIANCE GL DAY 2 04/12/23 VARIANCE GL DAY 2
--- NOTE | 2023-04-12 14:48 | NUR ---
IN TO ANSWER CALL LIGHT. PT FINISHED WITH TOILETING. SBA WITH FWW FROM RESTROOM TO CHAIR. MEDICATION ADMINISTERED, SEE JUN. PT REPORTING PAIN 3/10 TO RIGHT KNEE. PRN PAIN MEDICATION ADMINISTERED, SEE JUN. PT TAKES PO MEDICAITONS WITH NO ISSUES. ASSESSMENT COMPLETE. DRESSING TO RIGHT KNEE C/D/I. PEDAL PULSE TO RIGHT FOOT PALPABLE. CMS INTACT. CRYO CUFF FILLED WITH ICE AND PLACED TO RIGHT KNEE. RIGHT ANKLE ELEVATED ON PILLOW. URINAL EMPTIED. PT SITTING UP IN RECLINER WATCHING TV. PT DENIES ANY OTHER NEEDS AT THIS TIME. CALL LIGHT IN REACH.
--- NOTE | 2023-04-12 15:44 | NUR ---
WHEN I WENT IN AND DID HIS 1400 VITALS PATIENT WAS UP IN HIS CHAIR DOING A CROSSWORD PUZZLE.
--- NOTE | 2023-04-12 16:34 | NUR ---
IN TO ADMINISTER MEDICATION, SEE MAR. PT TAKES PO MEDICATION WITH NO ISSUES. PT SITTING UP IN RECLINER. WATER PROVIDED. PT DENIES PAIN AT THIS TIME. URINAL EMPTIED. PT DENIES ANY OTHER NEEDS AT THIS TIME. CALL LIGHT IN REACH.
[2023-04-12 18:07] VITALS: BP 148/59
--- NOTE | 2023-04-12 18:42 | NUR ---
IN TO ROUND ON PT. PT SITTING UP IN RECLINER WITH BLE ELEVATED. PT EYES CLOSED, RR EVEN AND UNLABROED. PT AWAKENS WHEN THIS RN ENTERS ROOM. PT DENIES ANY NEEDS AT THIS TIME. CALL LIGHT IN REACH.
--- NOTE | 2023-04-12 19:41 | NUR ---
PATIENT RESTING IN CHAIR WATCHING TV. PATIENT STATES NO FURTHER NEEDS. CALL LIGHT IN REACH.
[2023-04-12 20:48] VITALS: BP 131/62
--- NOTE | 2023-04-12 20:50 | NUR ---
CALL LIGHT ANSWERED, pt SBA WITH FWW BACK TO BED. CYRO CUFF ICE REPLACED AND VSS AND I&O'S COLLECTED AND CHARTED. FRESH ICE WATER PROVIDED. CALL LIGHT IN REACH.
--- NOTE | 2023-04-12 21:10 | NUR ---
PATIENT ASSISTED TO THE BR A SBA W/FWW. PATIENT HAD SCANT SMEAR OF BM. PATIENT IS BACK IN BED RESTING. PATIENT DENIES ANY FURTHER NEEDS. CALL LIGHT IN REACH. BED ALARM ON FOR SAFETY. PATIENTS HAS LEFT FOR THE NIGHT.
--- NOTE | 2023-04-12 21:52 | NUR ---
PATIENT ASSISTED TO THE BR A SBA W/FWW. PATIENT HAS LARGE SOFT BM. BARRIER CREAM APPLIED TO PATIENTS RECTUM PER REQUEST. PATIENT IS BACK IN BED RESTING. PATIENTS DAUGHTER IS AT BEDSIDE. PATIENT GIVEN WARM BLANKET. PATIENT DENIES ANY FURTHER NEEDS. CALL LIGHT IN REACH. BED ALARM ON FOR SAFETY.
--- NOTE | 2023-04-12 22:12 | NUR ---
PATIENT RESTING IN BED ON BACK WATCHING TV. PATIENT REPORTS NO CURRENT NEEDS. CALL LIGHT IN REACH.
--- NOTE | 2023-04-12 22:16 | NUR ---
PATIENT RESTING ON BED ON BACK. VS AND I&Os OBTAINED AND RECORDED. SCHEDULED MEDICAITON ADMINISTERED. PRN PAIN MEDICAITON ADMINISTERED PER PATEINT REQUEST, SEE JUN. ASSESSMENT COMPLETE. RIGHT KNEE DRESSING C/D/I. PILLOW PLACED UNDER THE RIGHT HEEL. FOOT SCDs IN PLACE. CRYO CUFF IN PLACE. FRESH WATER PROVIDED. PICC HEP LOCKED PER ORDER AND FLUSHED WNL. PATIENT STATES NO FURTHER NEEDS. CALL LIGHT IN REACH.
--- NOTE | 2023-04-13 00:21 | NUR ---
PATIENT IN BED RESTING ON BACK WITH EYES CLOSED. PATIENTS OWN CPAP IN PLACE. RESPIRATIONS EVEN AND UNLABORED. CALL LIGHT IN REACH.
--- NOTE | 2023-04-13 02:08 | NUR ---
PATIENT IN BED RESTING ON BACK WITH EYES CLOSED. AWAKENS EASILY. THIS RN EMPTIED PATIENT URINAL. PATIENT REPORTS NO FURTHER NEEDS. CALL LIGHT IN REACH.
--- NOTE | 2023-04-13 04:38 | NUR ---
PATIENT RESTING IN BED ON BACK WATCHING TV. THIS RN EMPTIED URINAL. ASSESSMENT COMPLETE. PATIENT STATES NO PAIN IN RIGHT KNEE, JUST STIFFNESS. CRYO CUFF REFILLED. RIGHT KNEE DRESSING C/D/I. BILAT FEET TEDHOSE IN PLACE. PATIENT HAS NO FURTHER NEEDS. CALL LIGHT IN REACH.
[2023-04-13 04:53] VITALS: BP 138/75
--- NOTE | 2023-04-13 04:54 | NUR ---
PATIENT RESTING IN BED WATCHING TV. VS AND I&Os OBTAINED AND RECORDED. PATIENT HAS NO FURTHER NEEDS. CALL LIGHT IN REACH.
[2023-04-13 05:41] LABS: BASOPHILS 0.9 % (0-2); EOSINOPHILS 2.8 % (0-6); HEMATOCRIT 29.2 % (35.0-50.0); LYMPHOCYTES 13.3 % (24-44); MCH 29.8 (27-36); MCHC 34.2 g/dl (30-36); MONOCYTES 11.3 % (0-12); NEUTROPHILS 71.7 % (39-80); PLATELET COUNT 420 K/uL (140-440); RBC 3.36 M/ul (4.3-5.7); RDW 14.5 (10.5-15.0)
[2023-04-13 05:55] LABS: ALBUMIN 2.5 g/dL (3.4-5.0); ALBUMIN/GLOBULIN RATIO 0.52 (1.1-2.4); ANION GAP 12.2 (7-21); BILIRUBIN, TOTAL 0.9 ng/dL (0.2-1.0); BUN/CREATININE RATIO 19.01 (6.0-28.6); CALCIUM 9.2 mg/dL (8.5-10.1); CREATININE, SERUM 1.42 mg/dL (0.70-1.30); POTASSIUM 4.2 mmol/L (3.5-5.1); PROTEIN, TOTAL 7.3 g/dL (6.4-8.2)
--- NOTE | 2023-04-13 07:05 | NUR ---
REPORT RECEIVED FROM TORRES DE SOUZA AND TORRES MCFARLANE. PT LAYING IN BED SEMI-FOWLERS. CPAP IN PLACE. EYES CLOSED, RR EVEN AND UNLABORED. RR OF 18 NOTED. CRYO CUFF TO RIGHT KNEE. NO NEEDS IDENTIFIED. CALL LIGHT IN REACH.
--- NOTE | 2023-04-13 08:20 | NUR ---
IN TO ADMINISTER MEDICATIONS, SEE MAR. PT SITTING UP IN BED AND RESPONDS WHEN ADDRESSED. PT TAKES PO MEDICATIONS WITH NO ISSUES. PT DENIES PAIN AT THIS TIME. PT DENIES NUMBNESS OR TINGLING AT THIS TIME. ASSESSMENT COMPLETE. LUNG SOUNDS CLEAR. BOWEL TONES ACTIVE. PEDAL PULSES PALPABLE AND EQUAL BILATERALLY. DRESSING TO RIGHT KNEE C/D/I. RIGHT ANKLE ELEVATED ON PILLOW. CRYO CUFF IN PLACE TO RIGHT KNEE. PT REQUESTING TO HAVE FOOT SCDs OFF. FOOT SCDs OFF PER PT REQUEST. WATER PROVIDED. BREAKFAST TRAY ARRIVES. BRISK BLOOD RETURN NOTED FROM PICC AND FLUSHES WNL. IV ABX STARTED, SEE MAR. MANDEEP MORGAN IN ROOM. PT DENIES ANY OTHER NEEDS AT THIS TIME. CALL LIGHT IN REACH.
[2023-04-13 10:17] VITALS: BP 112/61
--- NOTE | 2023-04-13 10:19 | NUR ---
IN TO ROUND ON PT. IV PUMP BEGINGS ALARMING, IV ABX COMPLETE. PICC LINE BRISK BLOOD RETURN NOTED, FLUSHED WITH 20ML NS FOLLOWED BY HEPARIN FLUSH, SEE MAR. VITALS AND I&Os COMPLETE. URINAL EMPTIED. PT REPORTING TOILETING NEEDS. SBA WITH FWW FROM BED TO RESTROOM. PT ENCOURAGED TO USE PULL CORD ON WALL WHEN FINISHED. PT VERBALIZES UNDERSTANDING. WATER PROVIDED. NO OTHER NEEDS AT THIS TIME.
--- NOTE | 2023-04-13 10:36 | NUR ---
IN TO ANSWER CALL LIGHT. PT DONE TOILETING. SBA WITH FWW FROM RESTROOM TO RECLINER. PT ELEVATED BLE IN RECLINER. PT DENIES ANY OTHER NEEDS AT THIS TIME. CALL LIGHT IN REACH.
--- NOTE | 2023-04-13 11:09 | NUR ---
MS NASH. 15 MINUTES. PT EXPRESSED HOPEFUL ANTICIPATION OF DISCHARGE SOON WELL AWARENESS AND ACCEPTANCE OF SITUATION. PROVIDED SUPPORTIVE PRESENCE. LISTENED EMPATHETICALLY. FACILITATED STORY TELLING. EXITED WHEN PHYSICAL THERAPY ENTERED ROOM. PROVIDED SILENT PRAYER FOR CONTINUED HEALING.
--- NOTE | 2023-04-13 13:00 | NUR ---
Spoke with Corey. I am unsure if he will dc tomorrow. Left and order sheet for Dr. Garcia to order antibiotic for [facility] at [facility] when pt discharges. I gave the patient the phone number for transport van to schedule his own daily transport. I updated TOMMY Stratton, and requested she call Monica at [facility] tomorrow and let them know the time pt will need antibiotics and the date they will dc. Pt is aware I faxed a chart to OP PT and they will call him next week to start. He knows to schedule his PT with his antibiotics and the van will transport him to his daily to these appts.
[2023-04-13 14:14] VITALS: BP 126/61
--- NOTE | 2023-04-13 14:15 | NUR ---
PATIENT UP TO BR FOR BM, USING FWW AND SBA. LINEN CHANGED, CRYO REFILLED WITH ICE. PATIENT BACK INTO RECLINER AT THIS TIME, CALL LIGHT IN EASY REACH
--- NOTE | 2023-04-13 14:37 | NUR ---
IN TO ADMINISTER MEDICATION, SEE MAR. PT TAKES PO MEDICATION WITH NO ISSUES. PT SITTING UP IN RECLINER WITH BLE ELEVATED. ASSESSMENT COMPLETE. DRESSING TO RIGHT KNEE C/D/I. PT REPORTING PAIN 05/10. PT DENIES CRYO CUFF. PEDAL PULSES PALPABLE AND EQUAL BILATERALLY. CMS INTACT. WATER PROVIDED. PT DENIES ANY OTHER NEEDS AT THIS TIME. CALL LIGHT IN REACH. VISITIOR IN ROOM.
--- NOTE | 2023-04-13 16:25 | NUR ---
IN TO ROUND ON PT. PT SITTING UP IN RECLINER. PT RESPONDS WHEN ADDRESSED. PT DENIES ANY NEEDS AT THIS TIME. CALL LIGHT IN REACH. FAMILY MEMBER IN ROOM.
--- NOTE | 2023-04-13 17:16 | NUR ---
IN TO ADMINISTER MEDICATION, SEE MAR. PT SITTING UP IN RECLINER WITH BLE ELEVATED AND DINNER TRAY IN FRONT OF PT. PT ON CELL PHONE. PT RESPONDS WHEN ADDRESSED. PT TAKES PO MEDICATION WITH NO ISSUES. PT DENIES ANY OTHER NEEDS AT THIS TIME. CALL LIGHT IN REACH.
[2023-04-13 17:47] VITALS: BP 117/55
--- NOTE | 2023-04-13 17:52 | NUR ---
IN TO ROUND ON PT. PT SITTING UP IN RECLINER. PT RESPONDS WHEN ADDRESSED. URINAL EMPTIED. VITALS AND I&Os COMPLETE. PT DENIES ANY OTHER NEEDS AT THIS TIME. CALL LIGHT IN REACH.
[2023-04-13 20:27] VITALS: BP 134/55
--- NOTE | 2023-04-13 20:37 | NUR ---
telephone order received read back for am cbc and cmp from LENI BRENNER.
--- NOTE | 2023-04-13 20:51 | NUR ---
UP IN CHAIR, SBA/FWW BACK TO BED. ON ROOM AIR, CURRENTLY HOLDING HOME CPAP AT HANDS., R KNEE AREA INCISION COVERED WITH ADILSON WRAP, GOOD CMS. TEDHOSE L LEG, SCDS BILAT. C/O 07/08 R KNEE PAIN, MEDICATED WITH OXYCODONE 5MG PO. CRYOCUFF TO R KNEE AREA. R PICC LINE PATENT. VOIDING QS, USING URINAL. TOLERATING LIQUIDS WELL
--- NOTE | 2023-04-13 21:48 | NUR ---
IN ROOM TO MEASURE PICC CIRCUMFERENCE PER REQUEST OF PRIMARY RN NIRAV. ARM CIRCUMFERENCE AT RIGHT PICC INSERTION SITE 34CM. ARM CIRCUMFERENCE 10 CM ABOVE AC IS 39CM. PRIMARY RN NIRAV MADE AWARE. FRESH ICE WATER PROVIDED AND URINAL EMPTIED. CALL LIGHT IN REACH, pt DENIES ADDITIONAL NEEDS OR CONCERNS.
--- NOTE | 2023-04-14 02:46 | NUR ---
PT AWAKES EASILY, USING CPAP, URINAL EMPTIED AND FRESH ICED WATER GIVE. CRYOCUFF REFILLED, DRESSING R KNEE NO PROBLEMS
[2023-04-14 04:23] VITALS: BP 139/74
--- NOTE | 2023-04-14 04:37 | NUR ---
C/O /10 R LEG PAIN, MEDICATED WITH 5MG PO OXYCODINE, USING CPAP. DRESSING TO R LEG NO CHANGES. SCDS, HEEL PROTECTORS INPLACE
--- NOTE | 2023-04-14 04:49 | NUR ---
pt awake, cooperative with vitals, Blood drawn for CBC and CMP via PICC line, sent to lab. c/o 08/08 R knee pain, medicated with Oxycodone 5mg PO. using cpap, cryocuff to dressing over R knee area. blaise santoshe L leg, foot pumps/scds and heel protectors in place. tolerating liquids well, no emesis
[2023-04-14 04:57] LABS: BASOPHILS 0.8 % (0-2); EOSINOPHILS 1.9 % (0-6); HEMATOCRIT 30.8 % (35.0-50.0); HEMOGLOBIN 10.1 g/dL (12.0-18.0); LYMPHOCYTES 13.2 % (24-44); MCH 28.8 (27-36); MCHC 32.8 g/dl (30-36); MCV 87.9 fl (81-99); MONOCYTES 9.9 % (0-12); NEUTROPHILS 74.2 % (39-80); PLATELET COUNT 419 K/uL (140-440); RBC 3.51 M/ul (4.3-5.7); RDW 14.2 (10.5-15.0)
[2023-04-14 05:08] LABS: ALBUMIN 2.5 g/dL (3.4-5.0); ALBUMIN/GLOBULIN RATIO 0.5 (1.1-2.4); ANION GAP 14.5 (7-21); BILIRUBIN, TOTAL 0.9 ng/dL (0.2-1.0); BUN/CREATININE RATIO 17.83 (6.0-28.6); CALCIUM 9.4 mg/dL (8.5-10.1); CREATININE, SERUM 1.57 mg/dL (0.70-1.30); POTASSIUM 4.5 mmol/L (3.5-5.1); PROTEIN, TOTAL 7.5 g/dL (6.4-8.2)
--- NOTE | 2023-04-14 05:29 | NUR ---
Pt has slept off and on this shift. Currently in bed, using CPAP. no distress, no sob. Was up in chair earlier at begining of shift. back to bed with minimum to almost no assist /fww. Dressing to R knee covered with domingo wrap, darkened area above ankle, no changes. blaise sorenson L foot, scds, heel protectors an dcryocuff in place. Tolerating fresh fluids well, voiding QS
--- NOTE | 2023-04-14 07:05 | NUR ---
REPORT RECEIVED FROM TORRES GASTELUM. PT SITTING UP IN BED. PT RESPONDS WHEN ADDRESSED. PT REPORTS TOILETING NEEDS. SBA WITH FWW FROM BED TO RESTROOM. PT INFORMED TO USE CALL LIGHT WHEN FINISHED. PT VERBALIZES UNDERSTANDING. NO OTHER NEEDS AT THIS TIME.
--- NOTE | 2023-04-14 07:40 | NUR ---
IN TO DRAW BLOOD CULTURES FROM PICC. PT LAYING IN BED AND RESPONDS WHEN ADDRESSED. WASTED 5ML OF BLOOD. 10 ML OF BLOOD PULLED FROM PICC FOR CULTURED. FLUSHED WITH 20ML NS. PT DENIES ANY OTHER NEEDS AT THIS TIME. CALL LIGHT IN REACH.
[2023-04-14 08:05] LABS: BILIRUBIN, URINE NEGATIVE (negative); BLOOD/HGB, URINE TRACE-I (Negative); KETONE, URINE NEGATIVE (Negative); LEUK ESTERASE, URINE NEGATIVE (negative); NITRITE, URINE NEGATIVE (negative)
[2023-04-14 08:11] LABS: WHITE BLOOD CELLS, URINE 0-1 /HPF (0-5)
[2023-04-14 08:12] LABS: EPITHELIAL CELLS, URINE 0 /lpf (0-1+); REFLEX CULTURE, URINE No (No)
[2023-04-14 08:20] VITALS: BP 103/54
--- NOTE | 2023-04-14 08:20 | NUR ---
JAQUELINE FABIAN AT BEDSIDE FOR PT EVALUATION. PT BP 103/54, ANTIHYPERTENSIVES HELD, DISCUSSED WITH JAQUELINE, ORDERED TO ALSO HOLD LIPITOR FOR ELEVATED LIVER ENZYMES AND TO DC ABX SHE WILL BE ORDERING NEW ABX. U/S TECH AT BEDSIDE.
--- NOTE | 2023-04-14 09:33 | NUR ---
IN TO ROUND ON PT. PT WORKING WITH PHYSICAL THERAPY. PT REPORTING PAIN 4/10 IN RIGHT KNEE AND REQUSTING PRN PAIN MEDICATION. PRN PAIN MEDICATION ADMINISTERED, SEE MAR. PT DENIES ANY OTHER NEEDS FROM THIS RN AT THIS TIME. PHYSICAL THERAPY STILL WITH PT.
--- NOTE | 2023-04-14 10:40 | NUR ---
IN TO ROUND ON PT. PT REPORTING PAIN 0. 1058 PICC LINE DRESSING CHANGED PER POLICY. NEW CLAVE PLACED, SEE VASCULAR ACCESS. ASSESSMENT COMPLETE. LUNG SOUNDS CLEAR. BOWEL TONES ACTIVE. DRESSING TO RIGHT KNEE C/D/I. BLISTER NOTED TO RIGHT ANKLE. PEDAL PULSES PALPABLE AND EQUAL. YOLI HOSE TO LEFT LET IN PLACE. PT DENIES CRYO CUFF WHEN OFFERED. PT SITTING UP IN RECLINER. PT DENIES ANY OTHER NEEDS AT THIS TIME. CALL LIGHT IN REACH.
--- NOTE | 2023-04-14 11:58 | NUR ---
MS NASH. 15 MINUTES. PT EXPRESSED HOPE; INQUIRED ABOUT LUNCH. LISTENED EMPATHETICALLY. ADVOCATED FOR PATIENT. PROVIDED SILENT PRAYER. LEFT GUIDEPOST WITH CONTACT CARD AND PRAYER CARD.
--- NOTE | 2023-04-14 12:55 | NUR ---
IN TO ROUND ON PT. PT SITTING UP IN RECLINER WORKING ON WORD SEARCH PUZZLE. PT DONE WITH LUNCH TRAY, TRAY REMOVED. WATER PROVIDED. URINAL EMPTIED. PT DENIES ANY OTHER NEEDS AT THIS TIME. CALL LIGHT IN REACH.
[2023-04-14 13:24] VITALS: BP 128/61
--- NOTE | 2023-04-14 15:01 | NUR ---
IN TO ADMINISTER MEDICAITONS, SEE MAR. PT REPORTING PAIN 2/10 WHILE SITTING IN BED. PRN PAIN MEDICAITON ADMINISTERED, SEE MAR. THIS RN ALERTED BY PHYSICAL THERAPY THAT PT WAS REPORTING PAIN IS BAD WHEN PT CAME INTO HOSPITAL. DRESSING TO RIGHT KNEE ADILSON WRAP C/D/I. ACTICOAT DRESSING INTACT TO KNEE, SMALL AMOUNT OF SHADOWING NOTED. ABD PADS NOTED TO HAVE SCANT AMOUNT OF SHADOWING. REDNESS NOTED TO RIGHT KNEE. PEDAL PULSES PALPABLE AND EQUAL BILATERALLY. PT SITTING UP IN BED WITH CRYO-CUFF IN PLACE. PEDAL SCDs IN PLACE. PT DENIES ANY OTHER NEEDS AT THIS TIME. CALL LIGHT IN REACH.
--- NOTE | 2023-04-14 16:27 | NUR ---
IN TO ROUND ON PT. PT SITTING UP IN BED WATCHING TV. PT REPSONDS WHEN ADDRESSED. PT REPORTING PAIN IN RIGHT KNEE 05/10. PT DENIES PRN PAIN MEDICATION AT THIS TIME. CRYO-CUFF TO RIGHT KNEE, SCDs IN PLACE. HEEL PROTECTORS IN PLACE. WATER PROVIDED. PT DENIES ANY OTHER NEEDS AT THIS TIME. CALL LIGHT IN REACH.
[2023-04-14 17:32] VITALS: BP 127/66
--- NOTE | 2023-04-14 18:36 | NUR ---
IN TO ROUND ON PT. PT SITTING UP IN BED ON PHONE. WATER PROVIDED. PT DENIES ANY OTHER NEEDS AT THIS TIME. CALL LIGHT IN REACH.
[2023-04-14 21:02] VITALS: BP 139/66
--- NOTE | 2023-04-14 21:05 | NUR ---
PT. VITALS AND I/OS TAKEN AND CHARTED APPROPRIATELY. PT. GIVEN FRESH ICE WATER, ROOM TIDIED, TRASH EMPTIED, CALL LIGHT LEFT WITHIN REACH. NO OTHER NEEDS AT THIS TIME.
--- NOTE | 2023-04-14 21:12 | NUR ---
Pt awake, in bed, on room air with home CPAP usage at HS. Pleasant and cooperative. lungs clear, no c/o CP or cough, abd large firm, marta, had a bm today, declined Milk of Magnesium this shift. R arm PICC line patent, flushed easily. R Knee incision area covered with domingo wrap, good cms, trce edema at ankle.cryocuff to R knee, fresh ice to container. Chaz hose L leg only, bilat foot pumps, heel protectors in place.
--- NOTE | 2023-04-15 00:28 | NUR ---
Using home CPAP, awake, no c/o pain. urinal emptied, dark yellow urine QS, scds in place. dressing to R knee intact
--- NOTE | 2023-04-15 00:52 | NUR ---
Patient called because his SCD machine was beeping. The left SCD tube was pinched. Repositioned the left foot and the SCD alarm stopped. Nothing else is needed at this time.
--- NOTE | 2023-04-15 04:35 | NUR ---
RESTAING, EYES CLOSED, USING HOME CPAP. SCDS IN PLACE, DRESSING TO R KNEE AREA INTACT. NO COUGH THIS SHIFT.
[2023-04-15 05:03] VITALS: BP 135/66
--- NOTE | 2023-04-15 05:25 | NUR ---
cooperative with blodd draws from picc line, denies need for pain med. no sob, no cough.
[2023-04-15 05:57] LABS: BASOPHILS 0.7 % (0-2); EOSINOPHILS 1.9 % (0-6); HEMOGLOBIN 9.8 g/dL (12.0-18.0); MCH 28.8 (27-36); MCHC 32.9 g/dl (30-36); MCV 87.7 fl (81-99); MONOCYTES 11.1 % (0-12); NEUTROPHILS 71.3 % (39-80); PLATELET COUNT 419 K/uL (140-440); RBC 3.42 M/ul (4.3-5.7); RDW 14.1 (10.5-15.0)
[2023-04-15 06:09] LABS: ALBUMIN 2.5 g/dL (3.4-5.0); ALBUMIN/GLOBULIN RATIO 0.51 (1.1-2.4); ANION GAP 13.4 (7-21); BILIRUBIN, TOTAL 0.8 ng/dL (0.2-1.0); BUN/CREATININE RATIO 18.47 (6.0-28.6); CALCIUM 9.3 mg/dL (8.5-10.1); CREATININE, SERUM 1.57 mg/dL (0.70-1.30); POTASSIUM 4.4 mmol/L (3.5-5.1); PROTEIN, TOTAL 7.4 g/dL (6.4-8.2)
--- NOTE | 2023-04-15 06:32 | NUR ---
RESTING, EYES CLOSED, USING HOME CPAP. DRESSING R KNEE INTACT. SCDS IN PLACE, NO C/O PAIN. VOIDING QS, R ARM PICC LINE PATENT
--- NOTE | 2023-04-15 07:23 | NUR ---
Report from Lori Oliver RN. Patient awake, alert and oriented. States he is wanting to get into recliner. SEROLOGY TEACHER assisting him up at this time. Denies other needs.
[2023-04-15 09:32] VITALS: BP 124/59
[2023-04-15 13:19] VITALS: BP 116/58
--- NOTE | 2023-04-15 14:45 | NUR ---
RECIEVED REPORT FROM TORRES TRINIDAD. PT IS RESTING COMFORTABLY. NO NEEDS.
[2023-04-15 18:13] VITALS: BP 135/60
[2023-04-15 20:12] VITALS: BP 143/60
--- NOTE | 2023-04-15 20:30 | NUR ---
On room air, uses home CPAP at HS. alert and oriented, clear lungs bilat. Large abd, soft, marta, declined MOM scheduled. took senokot tab. Having bm's. R knee area dressing in place, covered with domingo wrap, good cms. scabbed area lower R calf intact. cryocuff in place. scds,blaise hose in place, declined heel protectors. R PICC line patent, flushed easily. c/o 2/10 R leg pain, medicated with Oxycodone 5mg po. working with PT. uses urinal, voiding QS, Tolerating liquids well, no c/o n/v
--- NOTE | 2023-04-16 02:42 | NUR ---
RESTING, EYES CLOSED, NO C/O PAIN. USIGN CPAP. CRYOCUFF ICE REPLENISHED DRESSING INTACT. SCDS IN PLACE. URINAL EMPTIED, DARK YELLOW URINE. FRESH FLUIDS GIVEN TOO
[2023-04-16 04:06] VITALS: BP 126/62
--- NOTE | 2023-04-16 04:15 | NUR ---
awake, using home CPAP, c/o 2/10 R hip pain, medicated with Oxycodone, fresh ice water given, urinal emptied. goes back to sleep, repositions self in bed. Dressing intact R knee
--- NOTE | 2023-04-16 07:24 | NUR ---
RECIEVED REPORT FROM TORRES GASTELUM. PT HAS CYRO-CUFF IN PLACE, WITH ICE. INDEPENDENT IN ROOM. PICC IN PLACE AT 38CM. NO NEEDS AT THIS TIME.
[2023-04-16 08:25] LABS: ANION GAP 13.4 (7-21); BUN/CREATININE RATIO 21.16 (6.0-28.6); CALCIUM 9.5 mg/dL (8.5-10.1); CREATININE, SERUM 1.37 mg/dL (0.70-1.30); POTASSIUM 4.4 mmol/L (3.5-5.1)
[2023-04-16 09:27] LABS: ERYTHROCYTE SEDIMENTATION RATE 125
[2023-04-16 09:28] LABS: BASOPHILS 1.3 % (0-2); EOSINOPHILS 1.8 % (0-6); HEMATOCRIT 29.2 % (35.0-50.0); LYMPHOCYTES 16.6 % (24-44); MCH 29.9 (27-36); MCHC 34.2 g/dl (30-36); MCV 87.2 fl (81-99); MONOCYTES 11.1 % (0-12); NEUTROPHILS 69.2 % (39-80); PLATELET COUNT 423 K/uL (140-440); RBC 3.35 M/ul (4.3-5.7); RDW 14.1 (10.5-15.0)
[2023-04-16 10:09] VITALS: BP 100/53
[2023-04-16 13:14] VITALS: BP 126/54
--- NOTE | 2023-04-16 17:05 | NUR ---
PT ADMITTED FOR RIGHT KNEE WASHOUT AND HARDWARE REPLACEMENT. PT HAS PICC LINE WITH 38CM. BLOOD DRAWN OFF PICC FOR LABS BY THIS RN. PT PREMEDICATED FOR PHYSICAL THERAPY WITH 5MG OXY. PT HAS BEEN UP IN CHAIR ALL DAY, WORKED WITH PHYISCAL THERAPY. DRESSING IS C/D/I. NO SIGNS OF SHADOWING OR DRAINAGE ON OUTER WRAPS. CYRO-CUFF IN PLACE.
[2023-04-16 17:59] VITALS: BP 135/63
--- NOTE | 2023-04-16 19:44 | NUR ---
REPORT RECEIVED FROM KALIE MACDONALD. PT AWAKE, USING CPAP, IN BED, COOPERATIVE WITH ASSESSMENT, NO C/O PAIN AT THIS TIME. FRESH FLUIDS AND URINAL AT BEDSIDE. ALERT AND ORIENTED. LUNGS CLEAR BILAT, ABD DISTENDED "NORMAL" STATES. SADE, HAD A BM TODAY. R HIP INCISION DRESSING IN PLACE. SURGICAL AREA COVERED WITH DRESSING AND ADILSON WRAP. GOOD CMS. CRYOCUFF TO AREA. RIGHT LOWER LEG SCABBED OVER AREAS LOW MIDCALF HEALING,, INTACT. SCDS IN PLACE, YOLI CANCHOLA LEFT LEG ONLY DECLINES HEEL PROTECTORS. RIGTH ARM PICC LINE PATENT. WATCHING TV
[2023-04-16 21:06] VITALS: BP 134/63
--- NOTE | 2023-04-17 00:43 | NUR ---
Pt using CPAP, awakes easily, no c/o pain, used urinal, voided large amount dark yellow urine. more fresh iced water given. Cryocuff to R knee area, dressing intact. scds in place. no other requests, repositions self in bed
--- NOTE | 2023-04-17 02:46 | NUR ---
awakes easily, using CPAP, no c/o pain. urinal emptied. turns and repositions self
[2023-04-17 04:15] VITALS: BP 134/76
[2023-04-17 04:33] LABS: BASOPHILS 0.7 % (0-2); EOSINOPHILS 1.7 % (0-6); HEMATOCRIT 29.9 % (35.0-50.0); HEMOGLOBIN 10.1 g/dL (12.0-18.0); MCH 29.1 (27-36); MCHC 33.6 g/dl (30-36); MCV 86.4 fl (81-99); MONOCYTES 10.5 % (0-12); NEUTROPHILS 72.1 % (39-80); PLATELET COUNT 474 K/uL (140-440); RBC 3.46 M/ul (4.3-5.7); RDW 14.1 (10.5-15.0)
[2023-04-17 04:46] LABS: ANION GAP 13.6 (7-21); BUN/CREATININE RATIO 22.3 (6.0-28.6); CALCIUM 9.5 mg/dL (8.5-10.1); CREATININE, SERUM 1.39 mg/dL (0.70-1.30); POTASSIUM 4.6 mmol/L (3.5-5.1)
--- NOTE | 2023-04-17 05:13 | NUR ---
awakes easily, c/o abd pain, medicated with Oxycodone 5mg po. Uses CPAP. R knee dressing no changes. good CMS R leg. scds in place. cryocuff to R leg. tolerating liquids well, voiding QS, pleasant and cooperative
[2023-04-17 05:41] LABS: ERYTHROCYTE SEDIMENTATION RATE 41
--- NOTE | 2023-04-17 06:37 | NUR ---
PT AWAKE, NO C/O PAIN OR DISCOMFORT. URINAL EMPTIED.
--- NOTE | 2023-04-17 07:52 | NUR ---
recieved shift report from nurse around 0715. pt is awake a+o. laying in bed and watching tv. currently doing the same and waiting on breakfast. no other cares needed when offered or requested. call light within reach
--- NOTE | 2023-04-17 08:24 | NUR ---
This LEAD BURNER APPRENTICE assumed LEAD BURNER APPRENTICE cares for this pt from night time babysitter LEAD BURNER APPRENTICE. PT denies needing any assistance at this time.
[2023-04-17 09:36] VITALS: BP 132/56
--- NOTE | 2023-04-17 11:05 | NUR ---
PT UIS CURRENTLY SITTING UP IN CHAIR. PT STATES PAIN LEVEL IS AT 2. NO DISCOMFORT. ASSESSMENT COMPLETE. NO ABNORMAL FINDINGS. NO OTHER CARES REQUESTED OR NEEDED AT THIS TIME CALL LIGHT WITHIN REACH.
--- NOTE | 2023-04-17 13:20 | NUR ---
PT IS SITTING UP IN CHAIR VISITING FAMILY. PT REQUESTED FRESH ICE WATER AND A REFILL OF ICE FOR HIS CRYO CUFF. NO OTHER CARES REQUESTED OR NEEDED AT THIS TIME. CALL LIGHT WITHIN REACH
[2023-04-17 13:50] VITALS: BP 102/57
--- NOTE | 2023-04-17 14:16 | NUR ---
MS NASH. 15 MINUTES. PT EXPRESSED OPTIMISM AND POSITIVE ATTITUDE. FACILITATED STORY TELLING. PROVIDED SUPPORTIVE PRESENCE.
--- NOTE | 2023-04-17 14:46 | NUR ---
PT REFUSED SHOWER BUT REQUESTED A HAIR WASH. SHAMPOO CAP SUPPLIED FOR PT. NO OTHER NEEDS AT THIS TIME.
--- NOTE | 2023-04-17 15:33 | NUR ---
assessed pt incision. clean dry and intact. no signs of bruising or irritation. pt states that left side of wound itches a little. pain level at 4. oxycodone 5mg given upon pt request. pt is currently up in chair with legs elevated with cryo pad on right knee. no other cares requested or needed at this time. call light within reach.
--- NOTE | 2023-04-17 17:06 | NUR ---
pt is sitting up in chair watching television. pt requested ice water. pt states pain is at a 2 at this time. no other cares requested or needed at this time. call light within reach
[2023-04-17 18:32] VITALS: BP 103/66
--- NOTE | 2023-04-17 18:35 | NUR ---
pt is up in chair watching television. no cares needed or requested call light within reach
--- NOTE | 2023-04-17 18:50 | NUR ---
PT AMBULATED TO THE BATHROOM WITH SBA USING FRONT WHEEL WALKER. FULL LINEN CHANGE APPLIED. PM CARES. PT IS CURRENTLY IN BED. FEET SCDS APPLIED AND CRYO CUFF APPLIED ON RIGHT KNEE. NO OTHER NEEDS AT THIS TIME.
--- NOTE | 2023-04-17 21:32 | NUR ---
pt in bed, using cpap, cooperative with assessment, lungs clear, dim at bases, no cough. R knee incision with sheila, dry, normal skin color. below knee area inner frontal side raised red, slightly tender area noted, old scabbed over areas lower calf healing. scds, heel protectors and L leg blaise hose in place. c/o 3/10 R knee pain. medicated with Oxycodone 5mg po.
--- NOTE | 2023-04-18 00:09 | NUR ---
RESTING, EYES CLOSED, NO DISTRESS, USING CPAP. URINAL EMPTIED. CRYOCUFF TO R KNEE, SCDS IN PLACE
--- NOTE | 2023-04-18 02:37 | NUR ---
USING CPAP, NO DISTRESS, URINAL EMPTIED AND FRESH ICED WATER GIVEN. CRYOCUFF TO r KNEE, SCDS IN PLACE
--- NOTE | 2023-04-18 04:13 | NUR ---
Using CPAP, no s/sx distress, Cryocuff to R knee area. pillow under R leg, Foot pumps in place,td hose L leg. turns and repositions self in bed. fresh ice to cryocuff. urinal emptied.
[2023-04-18 05:58] VITALS: BP 128/61
--- NOTE | 2023-04-18 06:00 | NUR ---
awakes easily, using CPAP. no c/o pain. urinal emptied, fresh iced water given, fresh ice to cryocuff, R knee incision open to air with sheila in place, area well approximated, dry, normal skin color . edema to R knee and below R knee inner frontal area old blister healing, scabbed areas lower calf healing. scds in place, declined heel protectors this shift. pleasant and cooperative. Was medicated x1 with Oxycodone with good pain control
--- NOTE | 2023-04-18 07:09 | NUR ---
REPORT RECEIVED FROM SPECIAL EDUCATION MATH TEACHER RN NIRAV. PATIENT IS SITTING UPRIGHT IN BED. PATIENT IS ALERT AND TALKING. PATIENT STATED NO FURHTER NEEDS AT THIS TIME. PATIENT CALL LIGHT AND PERSONAL BELONGINGS ARE WITHIN REACH.
[2023-04-18] MEDS ORDERED: CLINDAMYCIN HC300 MG PO (07:37)
[2023-04-18] MEDS ORDERED: OXYCODONE HCL5 MG PO (07:37)
[2023-04-18] MEDS ORDERED: ASPIRIN EC325 MG PO (07:38)
[2023-04-18] MEDS ORDERED: SENNA LAX8.6 MG PO (07:38)
--- NOTE | 2023-04-18 08:11 | NUR ---
This [employer] assumed [employer] cares for this PT. This [employer] assisted PT to the bathroom with stand by assist using front wheel walker. PT is currently sitting up in the chair for breakfast. Call light within reach.
[2023-04-18 08:37] LABS: BASOPHILS 1.1 % (0-2); HEMATOCRIT 31.1 % (35.0-50.0); HEMOGLOBIN 10.2 g/dL (12.0-18.0); LYMPHOCYTES 14.5 % (24-44); MCH 28.8 (27-36); MCHC 32.9 g/dl (30-36); MCV 87.4 fl (81-99); MONOCYTES 9.3 % (0-12); NEUTROPHILS 73.1 % (39-80); PLATELET COUNT 509 K/uL (140-440); RBC 3.56 M/ul (4.3-5.7)
[2023-04-18 08:48] LABS: ALBUMIN 2.7 g/dL (3.4-5.0); ALBUMIN/GLOBULIN RATIO 0.51 (1.1-2.4); ANION GAP 16.2 (7-21); BILIRUBIN, TOTAL 0.9 ng/dL (0.2-1.0); BUN/CREATININE RATIO 19.28 (6.0-28.6); CALCIUM 9.5 mg/dL (8.5-10.1); CREATININE, SERUM 1.4 mg/dL (0.70-1.30); POTASSIUM 4.2 mmol/L (3.5-5.1)
--- NOTE | 2023-04-18 09:00 | NUR ---
PATIENT FULL ASSESSMENT COMPLETE AND DOCUMENTED IN THE CHART. PATIENT MORNING MEDICATIONS ADMINISTERED PER THE EMAR. PATIENT EXPRESSED READINESS TO GO HOME. LABS DRAWN THROUGH PICC LINE AND PICC THEN HEPARIN LOCKED. PATIENT IS ALERT AND ORIENTED. LUNG SOUNDS ARE CLEAR BILATERALLY IN ALL LUNG BUTTERFIELD. NORMAL S1 AND S2 AUSCULTATED. RADIAL AND PEDAL PULSES ARE STRONG BILATERALLY IN THE UPPER AND LOWER EXTREMITITES. BOWEL SOUNDS ARE ACTIVE IN ALL FOUR QUADRANTS. PATIENT IS SITTING UPRIGHT IN BED AND EATING BREAKFAST. PATIENT SURGICAL SITE ON THE RIGHT KNEE WITH EDGES APPROXIMATED AND THE [place] INTACT. THE SURGICAL SITE WITH REDNESS AND SOME SWELLING. PATIENT WITH CRYO CUFF IN PLACE. PATIENT STATED PAIN AT 2/10. PRN OXYCODONE ADMINISTERED PER THE EMAR. PATIENT STATED NO FURTHER NEEDS AT THIS TIME. CALL LIGHT AND PERSONAL BELONGINGS ARE WITHIN REACH.
[2023-04-18 09:01] VITALS: BP 113/61
--- NOTE | 2023-04-18 09:45 | NUR ---
UPDATED REFERRAL FOR OUTPATIENT IV ABX FAXED TO [facility]. CALLED SPOKE WITH [employer] INSTRUMENT REPAIR TECHNICIAN NADEEM TO UPDATE ON PATIENT DISCHARGE TODAY AND NEED FOR ABX TOMORROW. NADEEM STATES SHE WILL MAKE ARRANGEMENTS AND CONTACT THE PATIENT TO CONFIRM.
--- NOTE | 2023-04-18 11:15 | NUR ---
MS ROUNDS. PT RECEIVING NURSING CARE. DID NOT DISTURB. PROVIDED SILENT PRAYER.
--- NOTE | 2023-04-18 11:21 | NUR ---
PT REQUESTED SHOWER BEFORE DISCHARGE. PICC LINE AND KNEE INCISION WRAPPED PRIOR TO SHOWERING. PT UTILIZED A SHOWER CHAIR. PT SHOWERED INDEPENDENTLY. PT AMBULATED INTO AND OUT OF THE SHOWER USING A FRONT WHEEL WALKER WITH A STAND BY ASSIST. PT TOLERATED THE SHOWER WELL.
[2023-04-18] MEDS ORDERED: CUBICIN RF500 MG IV (13:15)
[2023-04-18 15:58] VITALS: BP 113/60
== END 2023-04-18 16:04 | disposition home or self-care (01) | DRG 486 ==
LOC: DS 08:02 → EDSTATUS 11:00 → MS 11:00 → DS 11:00 → MS 12:06
PROVIDERS: Physician Assistant; ADMIT Specialist; ATTEND Specialist
PROC: 0SPC09Z Removal of Liner from Right Knee Joint, Open Approach (ICD-10-PCS; 2023-04-07)
PROC: 0SUV09Z Supplement Right Knee Joint, Tibial Surface with Liner, Open Approach (ICD-10-PCS; 2023-04-07)
PROC: 0H9KXZZ Drainage of Right Lower Leg Skin, External Approach (ICD-10-PCS; 2023-04-07)
PROC: 0SBC0ZZ Excision of Right Knee Joint, Open Approach (ICD-10-PCS; principal; 2023-04-07 11:00)
PROC: 02HV33Z Insertion of Infusion Device into Superior Vena Cava, Percutaneous Approach (ICD-10-PCS; 2023-04-08)
DX: T84.53XA Infection and inflammatory reaction due to internal right knee prosthesis, initial encounter (principal); L03.115 Cellulitis of right lower limb; Y83.8 Other surgical procedures as the cause of abnormal reaction of the patient, or of later complication, without mention of misadventure at the time of the procedure; B96.89 Other specified bacterial agents as the cause of diseases classified elsewhere; I10 Essential (primary) hypertension; E78.00 Pure hypercholesterolemia, unspecified; G47.30 Sleep apnea, unspecified; M10.9 Gout, unspecified; R79.89 Other specified abnormal findings of blood chemistry; Z88.5 Allergy status to narcotic agent; Z79.2 Long term (current) use of antibiotics; Z79.899 Other long term (current) drug therapy; M19.90 Unspecified osteoarthritis, unspecified site
CPT/HCPCS: 01400; 36415; 36569; 64447; 71045; 76700; 76942; 80048; 80053; 81001; 82553; 85025; 85651; 86140; 86141; 87040; 87070; 87075; 87186; 87205; 89051; 94760; 94762; 97110; 97116; 97161; 97530; A9270; C1751; C1776; J0696; J0878; J1100; J1885; J1956; J2001; J2250; J2405; J2704; J2795; J3370; J7060; J7121